=== PATIENT | female | born 1945 | race Caucasian/White ===

== ENCOUNTER → 2016-08-14 | Outpatient (CLI) | payer MEDICARE ==
[2016-08-14 11:07] LABS: Basophils # (A) 0.2 k/uL (0-0.2); Basophils % (A) 2 %; CH 34.2; CHCM 34.6; Eosinophils # (A) 0.2 k/uL (0-0.7); Eosinophils % (A) 2 %; HCT 43.1 % (34.0-46.0); HDW 2.76; HGB 14.5 gm/dL (11.4-16.0); Luc # (Auto) 0.13; Luc % (Auto) 1; Lymphocytes # (A) 3.1 k/uL (1.0-4.8); Lymphocytes % (A) 29 %; MCH 33.5 pg (25.0-35.0); MCHC 33.7 g/dL (31.0-37.0); MCV 99.3 fL (80.0-100.0); Mean Platelet Volume 8.1; Monocytes # (A) 0.6 k/uL (0-1.0); Monocytes % (A) 5 %; Neutrophils # (A) 6.4 k/uL (1.3-7.7); Neutrophils % (A) 60 %; RBC 4.34 m/uL (3.80-5.40); WBC 10.6 k/uL (3.8-10.6)
[2016-08-14 11:33] LABS: ALT 56 U/L (9-52); AST 32 U/L (14-36); Alkaline Phosphatase 61 U/L (38-126); Anion Gap 14 mmol/L; Blood Urea Nitrogen 17 mg/dL (7-17); Calcium 9.8 mg/dL (8.4-10.2); Carbon Dioxide 26 mmol/L (22-30); Chloride 104 mmol/L (98-107); Cholesterol 127 mg/dL (<200); Glucose 126 mg/dL (74-99); HDL Cholesterol 42 mg/dL (40-60); Non-African American GFR(MDRD) 55 (>60 ml/min/1.73 sqM); Potassium 4.5 mmol/L (3.5-5.1); Sodium 144 mmol/L (137-145); Total Bilirubin 1.2 mg/dL (0.2-1.3); Total Protein 7.2 g/dL (6.3-8.2); Triglycerides 99 mg/dL (<150)
[2016-08-14 14:21] LABS: Hemoglobin A1C 5.3 % (4.2-6.1)
== END | disposition home or self-care (01) ==
LOC: LABWHC1 10:40
PROVIDERS: ATTEND Internal Medicine Geriatric Medicine
DX: E55.9 Vitamin D deficiency, unspecified (principal); I25.10 Atherosclerotic heart disease of native coronary artery without angina pectoris; R73.9 Hyperglycemia, unspecified
CPT/HCPCS: 36415; 80053; 80061; 82306; 83036; 84439; 84443; 85025

== ENCOUNTER → 2017-02-11 | Outpatient (CLI) | payer MEDICARE ==
--- NOTE | 2017-02-12 07:22 | XR ---
EXAMINATION TYPE: XR knee complete RT , 3 VIEWS DATE OF EXAM ORDERED: 02/11/2017 HISTORY: M25.561 pain in right knee. COMPARISON: None. FINDINGS: There is medial joint space loss. There is peaking of intercondylar spines. There are gavin deling changes in the medial compartment as well as patellofemoral joint. No definite joint effusion is seen. IMPRESSION: OSTEOARTHRITIS.
== END | disposition home or self-care (01) ==
LOC: RADXRMAIN 17:13
PROVIDERS: ATTEND Internal Medicine Geriatric Medicine
DX: M17.11 Unilateral primary osteoarthritis, right knee (principal)

== ENCOUNTER → 2017-02-24 | Outpatient (CLI) | payer MEDICARE ==
[2017-02-24 11:09] LABS: Basophils % (A) 0 %; CH 34.4; CHCM 34.4; Eosinophils # (A) 0.3 k/uL (0-0.7); Eosinophils % (A) 3 %; HCT 42.5 % (34.0-46.0); HDW 2.68; Luc # (Auto) 0.21; Luc % (Auto) 2; Lymphocytes # (A) 2.8 k/uL (1.0-4.8); Lymphocytes % (A) 28 %; MCH 33.2 pg (25.0-35.0); MCV 100.6 fL (80.0-100.0); Mean Platelet Volume 8.1; Monocytes # (A) 0.5 k/uL (0-1.0); Monocytes % (A) 5 %; Neutrophils # (A) 6.4 k/uL (1.3-7.7); Neutrophils % (A) 62 %; RBC 4.22 m/uL (3.80-5.40); RDW 13.7 % (11.5-15.5); WBC 10.3 k/uL (3.8-10.6); WBC (Perox) 10.46
[2017-02-24 11:30] LABS: ALT 49 U/L (9-52); AST 29 U/L (14-36); Alkaline Phosphatase 60 U/L (38-126); Anion Gap 11 mmol/L; Blood Urea Nitrogen 14 mg/dL (7-17); Calcium 9.6 mg/dL (8.4-10.2); Carbon Dioxide 26 mmol/L (22-30); Chloride 107 mmol/L (98-107); Cholesterol 114 mg/dL (<200); Glucose 111 mg/dL (74-99); HDL Cholesterol 41 mg/dL (40-60); Non-African American GFR(MDRD) 60 (>60 ml/min/1.73 sqM); Potassium 4.5 mmol/L (3.5-5.1); Sodium 144 mmol/L (137-145); Total Bilirubin 0.8 mg/dL (0.2-1.3); Total Protein 6.9 g/dL (6.3-8.2); Triglycerides 82 mg/dL (<150)
[2017-02-24 12:17] LABS: Hemoglobin A1C 5.7 % (4.2-6.1)
== END | disposition home or self-care (01) ==
LOC: LABWHC1 10:41
PROVIDERS: ATTEND Internal Medicine Geriatric Medicine
DX: E78.00 Pure hypercholesterolemia, unspecified (principal); I10 Essential (primary) hypertension; R73.9 Hyperglycemia, unspecified
CPT/HCPCS: 36415; 80053; 80061; 83036; 84439; 84443; 85025

== ENCOUNTER → 2017-11-21 | Outpatient (CLI) | payer MEDICARE ==
[2017-11-21 11:06] LABS: Albumin 4.2 g/dL (3.5-5.0); Calcium 9.5 mg/dL (8.4-10.2); Potassium 4.2 mmol/L (3.5-5.1); Total Bilirubin 1.1 mg/dL (0.2-1.3); Total Protein 6.7 g/dL (6.3-8.2)
[2017-11-21 16:28] LABS: Vitamin D 25 Hydroxy 27.9 ng/mL (30.0-100.0)
[2017-11-21 16:41] LABS: Folate, Serum 22.4 ng/mL
== END | disposition home or self-care (01) ==
LOC: LABWHC1 10:13
PROVIDERS: ATTEND Internal Medicine Interventional Cardiology
DX: E55.9 Vitamin D deficiency, unspecified (principal); D52.0 Dietary folate deficiency anemia; E78.2 Mixed hyperlipidemia
CPT/HCPCS: 36415; 80053; 80061; 82306; 82607; 82746

== ENCOUNTER → 2018-03-04 | Outpatient (CLI) | payer MEDICARE ==
[2018-03-04 10:53] LABS: Basophils % (A) 0 %; Eosinophils # (A) 0.2 k/uL (0-0.7); Eosinophils % (A) 2 %; HCT 39.8 % (34.0-46.0); HGB 13.8 gm/dL (11.4-16.0); Lymphocytes # (A) 1.9 k/uL (1.0-4.8); Lymphocytes % (A) 26 %; MCH 33.9 pg (25.0-35.0); MCHC 34.6 g/dL (31.0-37.0); Mean Platelet Volume 7.5; Monocytes # (A) 0.4 k/uL (0-1.0); Monocytes % (A) 5 %; Neutrophils # (A) 4.7 k/uL (1.3-7.7); Neutrophils % (A) 64 %; Platelet Count 247 k/uL (150-450); RBC 4.06 m/uL (3.80-5.40); RDW 13.7 % (11.5-15.5); WBC 7.4 k/uL (3.8-10.6)
[2018-03-04 11:05] LABS: Albumin 3.7 g/dL (3.5-5.0); Calcium 9.2 mg/dL (8.4-10.2); Total Bilirubin 0.8 mg/dL (0.2-1.3); Total Protein 6.3 g/dL (6.3-8.2)
[2018-03-04 11:21] LABS: T4, Free (Free Thyroxine) 1.24 ng/dL (0.78-2.19)
[2018-03-04 16:55] LABS: Iron Saturation 35.53 (12.00-45.00)
[2018-03-04 17:02] LABS: Vitamin D 25 Hydroxy 36.5 ng/mL (30.0-100.0)
[2018-03-04 20:03] LABS: Hemoglobin A1C 5.7 % (4.0-6.0)
== END | disposition home or self-care (01) ==
LOC: LABWHC1 09:51
PROVIDERS: ATTEND Internal Medicine Geriatric Medicine
DX: D52.0 Dietary folate deficiency anemia (principal); I25.10 Atherosclerotic heart disease of native coronary artery without angina pectoris; E78.00 Pure hypercholesterolemia, unspecified; R73.9 Hyperglycemia, unspecified
CPT/HCPCS: 36415; 80053; 80061; 82306; 82607; 82746; 83036; 83540; 83550; 84439; 84443; 85025

== ENCOUNTER → 2018-03-25 | Outpatient (CLI) | payer MEDICARE ==
--- NOTE | 2018-03-25 19:01 | BD ---
EXAMINATION TYPE: Axial Bone Density DATE OF EXAM: 03/25/2018 COMPARISON: 10/06/2007 CLINICAL HISTORY: 73-year-old female osteoporosis Height: 62.5 IN Weight: 173 LBS RISK FACTORS HISTORY OF: Family History of Osteoporosis: YES MOTHER Active: YES Postmenopausal woman: AGE 52 Take estrogen and/or progesterone medications: NOT NOW How long: CONTROL AGE 27 - 28 Lost more than 2 inches in height since high school: Frequent falls: Poor Health: Hyperparathyroidism: Adrenal Insufficiency: MEDICATIONS: Additional Medications: MULTI VIT, VIT D3, ATENOLOL, LIPITOR, LOSARTAN, COQ10, FISH OIL, BABY ASPIRIN Additional History: BILATERAL BREAST CANCER AGE 40, AND AGE 62 EXAM MEASUREMENTS: Bone mineral densitometry was performed using the [employer] System. Bone mineral density as measured about the Lumbar spine is: ----- L1-L4(G/cm2): 1.374 T Score Values are as follows: ----- L2: 0.7 ----- L3: 1.8 ----- L4: 2.4 ----- L1-L4: 1.6 Bone mineral density has: Increased 10.4% since study of: 10/06/2007 Bone mineral density about the R hip (g/cm2): 0.924 Bone mineral density about the L hip (g/cm2): 0.989 T Score values are as follows: -----R Neck: -0.8 -----L Neck: -0.4 -----R Total: -0.5 -----L Total: 0.2 Bone mineral density has: Decreased -3.4% since study of: 10/06/2007 IMPRESSION: Normal (Values between +1 and -1 indicate normal bone mass). Consider repeating this study in 5 year s or sooner if there is some new clinical indication. NOTE: T-SCORE=SD OF THE YOUNG ADULT MEAN.
== END | disposition home or self-care (01) ==
LOC: RADBDWWP 12:33
PROVIDERS: ATTEND Internal Medicine Geriatric Medicine
DX: M81.0 Age-related osteoporosis without current pathological fracture (principal)
CPT/HCPCS: 77080

== ENCOUNTER 2018-09-06 00:57 | Emergency (ER) | payer MEDICARE ==
[2018-09-06 01:02] VITALS: TEMP 98
--- NOTE | 2018-09-06 01:24 | ED ---
General Adult HPI - General Chief complaint: Recheck/Abnormal Lab/Rx Stated complaint: hypertension Time Seen by Provider: 09/06/18 01:06 Source: patient Mode of arrival: ambulatory Limitations: no limitations - History of Present Illness Initial comments: Brianna is a pleasant 73-year-old female with history of hypertension who presents to the emergency department today for evaluation of headache and hypertension. Patient reports that she's had a vague pressure-like headache throughout the day today, she was concerned she may be getting a sinus infection. She states that this evening she checked her blood pressure and noted that it was greater than 200 systolic. She contacted her primary care office but did not receive a call back at which time she decided to come the ER for evaluation. Patient reports that she is on oral antihypertensives and that she has been compliant with all of her medications. She is not taking any over- the-counter medications or cold medications. She reports that upon arrival to the emergency Department her headache has resolved however she still concerned about her elevated blood pressure. Patient denies any chest pain, shortness of breath, palpitations or near syncope. - Related Data Home Medications Medication Instructions Recorded Confirmed Aspirin 81 - 162 mg PO DAILY 01/07/15 02/11/15 Atenolol 25 mg PO DAILY 01/07/15 02/11/15 Atorvastatin [Lipitor] 40 mg PO DAILY 01/07/15 02/11/15 Cholecalciferol [Vitamin D3] 2,000 unit PO DAILY 01/07/15 02/11/15 Nitroglycerin Sl Tabs [Nitrostat] 0.4 mg SUBLINGUAL DIRECTED PRN 01/07/15 [place]-3 Fatty Acids [[place]-3] 1,000 mg PO DAILY 01/07/15 02/11/15 Ubidecarenone [Co Q-10] 200 mg PO DAILY 01/07/15 02/11/15 Multivitamins, Thera [Multivitamin 1 each PO DAILY 02/01/15 02/11/15 (formulary)] Previous Rx's Medication Instructions Recorded Losartan [Cozaar] 50 mg PO DAILY #90 tab 02/06/15 Allergies Allergy/AdvReac Type Severity Reaction Status Date / Time Antihistamines - Alkylamine Allergy Rapid Verified 09/06/18 01:02 Heart Rate Antihistamines - Ethanolamine Allergy Rapid Verified 09/06/18 01:02 Heart Rate Antihistamines - Allergy Rapid Verified 09/06/18 01:02 Ethylenediamine Heart Rate Antihistamines - Piperazine Allergy Rapid Verified 09/06/18 01:02 Heart Rate Antihistamines - Piperidine Allergy Rapid Verified 09/06/18 01:02 Heart Rate cortisone Allergy Rapid Verified 09/06/18 01:02 Heart Rate epinephrine Allergy Rapid Verified 09/06/18 01:02 Heart Rate morphine Allergy Nausea & Verified 09/06/18 01:02 Vomiting Penicillins Allergy Rash/Hives Verified 09/06/18 01:02 Review of Systems ROS Statement: Those systems with pertinent positive or pertinent negative responses have been documented in the HPI. ROS Other: All systems not noted in ROS Statement are negative. Past Medical History Past Medical History: Coronary Artery Disease (CAD), Cancer, Chest Pain / Angina , Deep Vein Thrombosis (DVT), Hyperlipidemia, Hypertension, Myocardial Infarction ([place]) Additional Past Medical History / Comment(s): Breast Cancer , DVT RT LEG 1991 POST FX,FREQ DIARRHEA,IBS,KIDNEY STONES,CHRONIC RASH TO LT FOOT,UMBILICAL HERNIA Last Myocardial Infarction Date:: History of Any Multi-Drug Resistant Organisms: None Reported Past Surgical History: Adenoidectomy, Breast Surgery, Heart Catheterization With Stent, Hysterectomy, Orthopedic Surgery, Tonsillectomy Additional Past Surgical History / Comment(s): Bilateral Mastactomy,heart stents x1. right total knee replacement. Past Anesthesia/Blood Transfusion Reactions: Postoperative Nausea & Vomiting ( PONV) Date of Last Stent Placement:: 2009 Past Psychological History: No Psychological Hx Reported Smoking Status: Former smoker Past Alcohol Use History: Occasional Past Drug Use History: None Reported - Past Family History Sister(s) Family Medical History: Cancer Additional Family Medical History / Comment(s): BREAST Mother Family Medical History: CVA/TIA Father Family Medical History: Cancer Additional Family Medical History / Comment(s): LUNG CA General Exam - General Exam Comments Initial Comments: GENERAL: Patient is well-developed and well-nourished. Patient is nontoxic and well-hydrated and is in no distress. HENT: Normocephalic, Atraumatic. Neck is soft and supple. No significant lymphadenopathy is noted. Oropharynx is clear. Moist mucous membranes. Neck has full range of motion without eliciting any pain. EYES: The sclera were anicteric and conjunctiva were pink and moist. Extraocular movements were intact and pupils were equal round and reactive to light. Eyelids were unremarkable. PULMONARY: Unlabored respirations. Good breath sounds bilaterally. No audible rales rhonchi or wheezing was noted. CARDIOVASCULAR: There is a regular rate and rhythm without any murmurs gallops or rubs. warm and well perfused extremities ABDOMEN: Soft and nontender with normal bowel sounds. No pulsatile mass SKIN: Skin is clear with no lesions or rashes and otherwise unremarkable. NEUROLOGIC: Patient is alert and oriented x3. Cranial nerves II through XII are grossly intact. Normal speech, volume and content. Symmetrical smile. MUSCULOSKELETAL: Normal extremities with adequate strength and full range of motion. No lower extremity swelling or edema. No calf tenderness. LYMPHATICS: No significant lymphadenopathy is noted PSYCHIATRIC: Normal psychiatric evaluation. Limitations: no limitations Limitations: no limitations Course Vital Signs 09/06/18 09/06/18 00:58 02:35 Temperature 98 F Pulse Rate 82 67 Respiratory 16 20 Rate Blood Pressure 207/77 127/57 O2 Sat by Pulse 98 97 Oximetry EKG Findings - EKG Comments: EKG Findings:: EKG was obtained at 1:40 AM rate is 100 and there is sinus rhythm with sinus arrhythmia and frequent PVCs. There are no acute ST elevations or depressions is no acute ischemia or infarction. Medical Decision Making - Medical Decision Making the patient was seen and evaluated history was obtained from the patient and at bedside Patient with mild headache throughout the day presenting with concern for elevated blood pressure On evaluation the patient's blood pressure is significantly elevated she's not had any chest pain or shortness of breath Catapres was ordered for blood pressure management and CT and labs were ordered Head CT with no acute findings Labs are unremarkable next an EKG is nonischemic Patient was reevaluated her blood pressure has normalized at this point she reports she is feeling much better she is comfortable with the plan for discharge home. She will contact her primary care physician for outpatient follow-up. Return parameters were discussed with questions pertaining care were answered to the best my ability patient was discharged home in stable condition. - Lab Data Result diagrams: 09/06/18 01:30 09/06/18 01:30 Lab Results 09/06/18 09/06/18 09/06/18 Range/Units 01:30 01:30 01:30 WBC 13.3 H (3.8-10.6) k/uL RBC 4.54 (3.80-5.40) m/uL Hgb 15.2 (11.4-16.0) gm/dL Hct 44.8 (34.0-46.0) % MCV 98.7 (80.0-100.0) fL MCH 33.5 (25.0-35.0) pg MCHC 34.0 (31.0-37.0) g/dL RDW 13.2 (11.5-15.5) % Plt Count 304 (150-450) k/uL Neutrophils % 58 % Lymphocytes % 32 % Monocytes % 6 % Eosinophils % 2 % Basophils % 1 % Neutrophils # 7.7 (1.3-7.7) k/uL Lymphocytes # 4.2 (1.0-4.8) k/uL Monocytes # 0.7 (0-1.0) k/uL Eosinophils # 0.2 (0-0.7) k/uL Basophils # 0.1 (0-0.2) k/uL PT (9.0-12.0) sec INR (<1.2) APTT (22.0-30.0) sec Sodium 140 (137-145) mmol/L Potassium 3.7 (3.5-5.1) mmol/L Chloride 105 (98-107) mmol/L Carbon Dioxide 24 (22-30) mmol/L Anion Gap 11 mmol/L BUN 18 H (7-17) mg/dL Creatinine 0.96 (0.52-1.04) mg/dL Est GFR (CKD-EPI)AfAm 69 (>60 ml/min/1.73 sqM) Est GFR (CKD-EPI)NonAf 60 (>60 ml/min/1.73 sqM) Glucose 133 H (74-99) mg/dL Calcium 10.0 (8.4-10.2) mg/dL Magnesium 1.9 (1.6-2.3) mg/dL Total Bilirubin 0.8 (0.2-1.3) mg/dL AST 32 (14-36) U/L ALT 55 H (9-52) U/L Alkaline Phosphatase 79 (38-126) U/L Total Creatine Kinase 54 (30-135) U/L CK-MB (CK-2) 0.7 (0.0-2.4) ng/mL CK-MB (CK-2) Rel Index 1.3 Troponin I <0.012 (0.000-0.034) ng/mL Total Protein 7.5 (6.3-8.2) g/dL Albumin 4.6 (3.5-5.0) g/dL 09/06/18 Range/Units 01:30 WBC (3.8-10.6) k/uL RBC (3.80-5.40) m/uL Hgb (11.4-16.0) gm/dL Hct (34.0-46.0) % MCV (80.0-100.0) fL MCH (25.0-35.0) pg MCHC (31.0-37.0) g/dL RDW (11.5-15.5) % Plt Count (150-450) k/uL Neutrophils % % Lymphocytes % % Monocytes % % Eosinophils % % Basophils % % Neutrophils # (1.3-7.7) k/uL Lymphocytes # (1.0-4.8) k/uL Monocytes # (0-1.0) k/uL Eosinophils # (0-0.7) k/uL Basophils # (0-0.2) k/uL PT 10.2 (9.0-12.0) sec INR 0.9 (<1.2) APTT 33.1 H (22.0-30.0) sec Sodium (137-145) mmol/L Potassium (3.5-5.1) mmol/L Chloride (98-107) mmol/L Carbon Dioxide (22-30) mmol/L Anion Gap mmol/L BUN (7-17) mg/dL Creatinine (0.52-1.04) mg/dL Est GFR (CKD-EPI)AfAm (>60 ml/min/1.73 sqM) Est GFR (CKD-EPI)NonAf (>60 ml/min/1.73 sqM) Glucose (74-99) mg/dL Calcium (8.4-10.2) mg/dL Magnesium (1.6-2.3) mg/dL Total Bilirubin (0.2-1.3) mg/dL AST (14-36) U/L ALT (9-52) U/L Alkaline Phosphatase (38-126) U/L Total Creatine Kinase (30-135) U/L CK-MB (CK-2) (0.0-2.4) ng/mL CK-MB (CK-2) Rel Index Troponin I (0.000-0.034) ng/mL Total Protein (6.3-8.2) g/dL Albumin (3.5-5.0) g/dL Disposition Clinical Impression: HTN (hypertension), Headache Disposition: HOME SELF-CARE Condition: Good Instructions (If sedation given, give patient instructions): Hypertension (ED) Is patient prescribed a controlled substance at d/c from ED?: No Referrals: Jacky Malave MD [Primary Care Provider] - 1-2 days
[2018-09-06] MEDS ORDERED: cloNIDine HCL 0.1 MG TAB PO STA (01:25)
[2018-09-06 01:50] LABS: Basophils # (A) 0.1 k/uL (0-0.2); Basophils % (A) 1 %; Eosinophils # (A) 0.2 k/uL (0-0.7); Eosinophils % (A) 2 %; HCT 44.8 % (34.0-46.0); HGB 15.2 gm/dL (11.4-16.0); Lymphocytes # (A) 4.2 k/uL (1.0-4.8); Lymphocytes % (A) 32 %; MCH 33.5 pg (25.0-35.0); MCV 98.7 fL (80.0-100.0); Mean Platelet Volume 7.1; Monocytes # (A) 0.7 k/uL (0-1.0); Monocytes % (A) 6 %; Neutrophils # (A) 7.7 k/uL (1.3-7.7); Neutrophils % (A) 58 %; Platelet Count 304 k/uL (150-450); RBC 4.54 m/uL (3.80-5.40); RDW 13.2 % (11.5-15.5); WBC 13.3 k/uL (3.8-10.6)
[2018-09-06 02:00] LABS: Albumin 4.6 g/dL (3.5-5.0); Magnesium 1.9 mg/dL (1.6-2.3); Potassium 3.7 mmol/L (3.5-5.1); Total Bilirubin 0.8 mg/dL (0.2-1.3); Total Protein 7.5 g/dL (6.3-8.2)
--- NOTE | 2018-09-06 02:00 | CT ---
EXAM: CT Head Without Intravenous Contrast CLINICAL HISTORY: ITS.REASON CT Reason: VALDEZ, HTN TECHNIQUE: Axial computed tomography images of the head/brain without intravenous contrast. CTDI is 49 mGy and DLP is 992 mGy-cm. This CT exam was performed using one or more of the following dose reduction techniques: automated exposure control, adjustment of the mA and/or kV according to patient size, and/or use of iterative reconstruction technique. COMPARISON: No relevant prior studies available. FINDINGS: Brain: No hemorrhage. No edema. Ventricles: Unremarkable. No ventriculomegaly. Bones/joints: No acute fracture. Soft tissues: Unremarkable. Sinuses: No fluid levels. Mastoid air cells: Unremarkable as visualized. No mastoid effusion. IMPRESSION: No acute intracranial findings
[2018-09-06 02:01] LABS: INR 0.9 (<1.2); Partial Thromboplastin Time 33.1 sec (22.0-30.0); Prothrombin Time 10.2 sec (9.0-12.0)
--- NOTE | 2018-09-06 02:02 | XR ---
EXAM: XR Chest, 2 Views CLINICAL HISTORY: ITS.REASON XR Reason: Chest Pain TECHNIQUE: Frontal and lateral views of the chest. COMPARISON: No relevant prior studies available. FINDINGS: Lungs: Unremarkable. No consolidation. Pleural space: Unremarkable. No pneumothorax. Heart: Unremarkable. No cardiomegaly. Mediastinum: Unremarkable. Bones/joints: No acute fracture. IMPRESSION: No acute findings.
[2018-09-06 02:07] LABS: Creatine Kinase 54 U/L (30-135)
[2018-09-06 02:20] LABS: Creatine Kinase MB 0.7 ng/mL (0.0-2.4); Troponin I <0.012 ng/mL (0.000-0.034)
[2018-09-06 02:56] VITALS: BP 129/79; PULSE 76; RESP 18
== END 2018-09-06 02:56 | disposition home or self-care (01) ==
LOC: EC 00:57
DX: I10 Essential (primary) hypertension (principal); I49.3 Ventricular premature depolarization; I25.119 Atherosclerotic heart disease of native coronary artery with unspecified angina pectoris; I25.2 Old myocardial infarction; E78.5 Hyperlipidemia, unspecified; Z79.82 Long term (current) use of aspirin; Z79.899 Other long term (current) drug therapy; Z88.8 Allergy status to other drugs, medicaments and biological substances; Z88.0 Allergy status to penicillin; Z88.5 Allergy status to narcotic agent; Z88.6 Allergy status to analgesic agent; Z87.891 Personal history of nicotine dependence; Z95.5 Presence of coronary angioplasty implant and graft; Z85.3 Personal history of malignant neoplasm of breast; Z86.718 Personal history of other venous thrombosis and embolism; Z90.13 Acquired absence of bilateral breasts and nipples; Z96.651 Presence of right artificial knee joint
CPT/HCPCS: 36415; 70450; 71046; 80053; 82550; 82553; 83735; 84484; 85025; 85610; 85730; 93005; 99284

== ENCOUNTER 2018-10-03 15:20 | Emergency (ER) | payer MEDICARE ==
[2018-10-03 15:29] VITALS: RESP 16; TEMP 98.6
--- NOTE | 2018-10-03 15:49 | ED ---
Extremity Problem HPI - General Chief complaint: Extremity Problem,Nontraumatic Stated complaint: Can't walk on lt leg Time Seen by Provider: 10/03/18 15:30 Source: patient Mode of arrival: wheelchair Limitations: no limitations - History of Present Illness Initial comments: Patient is a 73-year-old female presenting for left leg pain. The patient stat es that she drove to [facility] on the right was about 5-6 hours and after that, she was having left knee pain which was worse when she stood on it. The pain was sharp and radiating down the left leg but she denies any weakness. She states that she also has chronic right knee pain but his had a complete knee replacement in that leg. She decided come in because she was concerned about DVTs as she has a history of DVTs in the past. She also denies any numbness or tingling in that leg. - Related Data Home Medications Medication Instructions Recorded Confirmed Aspirin 81 - 162 mg PO DAILY 01/07/15 02/11/15 Atenolol 25 mg PO DAILY 01/07/15 02/11/15 Atorvastatin [Lipitor] 40 mg PO DAILY 01/07/15 02/11/15 Cholecalciferol [Vitamin D3] 2,000 unit PO DAILY 01/07/15 02/11/15 Nitroglycerin Sl Tabs [Nitrostat] 0.4 mg SUBLINGUAL DIRECTED PRN 01/07/15 02/11/15 [place]-3 Fatty Acids [[place]-3] 1,000 mg PO DAILY 01/07/15 02/11/15 Ubidecarenone [Co Q-10] 200 mg PO DAILY 01/07/15 02/11/15 Multivitamins, Thera [Multivitamin 1 each PO DAILY 02/01/15 02/11/15 (formulary)] Previous Rx's Medication Instructions Recorded Losartan [Cozaar] 50 mg PO DAILY #90 tab 02/06/15 HYDROcodone/APAP 5-325MG [[place] 1 tab PO Q6HR PRN #12 tab 10/03/18 5-325] Allergies Allergy/AdvReac Type Severity Reaction Status Date / Time Antihistamines - Alkylamine Allergy Rapid Verified 10/03/18 15:29 Heart Rate Antihistamines - Ethanolamine Allergy Rapid Verified 10/03/18 15:29 Heart Rate Antihistamines - Allergy Rapid Verified 10/03/18 15:29 Ethylenediamine Heart Rate Antihistamines - Piperazine Allergy Rapid Verified 10/03/18 15:29 Heart Rate Antihistamines - Piperidine Allergy Rapid Verified 10/03/18 15:29 Heart Rate cortisone Allergy Rapid Verified 10/03/18 15:29 Heart Rate epinephrine Allergy Rapid Verified 10/03/18 15:29 Heart Rate morphine Allergy Nausea & Verified 10/03/18 15:29 Vomiting Penicillins Allergy Rash/Hives Verified 10/03/18 15:29 Review of Systems ROS Statement: Those systems with pertinent positive or pertinent negative responses have been documented in the HPI. Constitutional: Negative for chills, fatigue and fever. HENT: Negative for congestion. Respiratory: Negative for chest tightness, shortness of breath and wheezing. Negative for cough Cardiovascular: Negative for chest pain and palpitations. Gastrointestinal: Negative for abdominal pain. Negative for abdominal distention, diarrhea, nausea and vomiting. Genitourinary: Negative for dysuria. Musculoskeletal: Negative for back pain, neck pain and neck stiffness. Positive for left knee pain Skin: Negative for color change. Neurological: Negative for dizziness, speech difficulty, weakness and light- headedness. Psychiatric/Behavioral: Negative for agitation and confusion. Negative for anxiety ROS Other: All systems not noted in ROS Statement are negative. Past Medical History Past Medical History: Coronary Artery Disease (CAD), Cancer, Chest Pain / Angina, Deep Vein Thrombosis (DVT), Hyperlipidemia, Hypertension, Myocardial Infarction ([place]) Additional Past Medical History / Comment(s): Breast Cancer , DVT RT LEG 1990 POST FX,FREQ DIARRHEA,IBS,KIDNEY STONES,CHRONIC RASH TO LT FOOT,UMBILICAL HERNIA Last Myocardial Infarction Date:: History of Any Multi-Drug Resistant Organisms: None Reported Past Surgical History: Adenoidectomy, Breast Surgery, Heart Catheterization With Stent, Hysterectomy, Orthopedic Surgery, Tonsillectomy Additional Past Surgical History / Comment(s): Bilateral Mastactomy,heart stents x1. right total knee replacement. Past Anesthesia/Blood Transfusion Reactions: Postoperative Nausea & Vomiting (PONV) Date of Last Stent Placement:: 2009 Past Psychological History: No Psychological Hx Reported Smoking Status: Former smoker Past Alcohol Use History: Occasional Past Drug Use History: None Reported - Past Family History Sister(s) Family Medical History: Cancer Additional Family Medical History / Comment(s): BREAST Mother Family Medical History: CVA/TIA Father Family Medical History: Cancer Additional Family Medical History / Comment(s): LUNG CA General Exam - General Exam Comments Initial Comments: Constitutional: Pt appears well-developed and well-nourished. No distress. Head: Normocephalic and atraumatic. Eyes: EOM are normal. Neck: Normal range of motion. Neck supple. Cardiovascular: Normal rate, regular rhythm, S1 normal, S2 normal and normal heart sounds. Exam reveals no gallop and no friction rub. No murmur heard. 2+ DP/PT pulses bilaterally Pulmonary/Chest: Effort normal and breath sounds normal. No tachypnea and no bradypnea. No respiratory distress. No wheezes or rales noted. Abdominal: Soft. Bowel sounds are normal. Pt exhibits no shifting dullness, no distension, no pulsatile liver, no fluid wave, no abdominal bruit and no ascites. There is no rigidity, no rebound, no guarding, no tenderness at McBurney's point and negative Hemphill's sign. There is no tenderness. Musculoskeletal: Normal range of motion. No effusions of the knees bilaterally. No tenderness in the gluteal fossa of either knee. Neurological: Pt is alert and oriented to person, place, and time. No cranial nerve deficit. Skin: Skin is warm and dry. No rash noted. Pt is not diaphoretic. No erythema. No pallor. Psychiatric: Pt has a normal mood and affect. Pt behavior is normal. Thought content normal. Limitations: no limitations Course Vital Signs 10/03/18 10/03/18 15:25 18:08 Temperature 98.6 F 98.6 F Pulse Rate 78 72 Respiratory 16 16 Rate Blood Pressure 169/72 155/70 O2 Sat by Pulse 98 99 Oximetry Medical Decision Making - Medical Decision Making Bilateral lower extremity ultrasounds were negative for DVT and x-ray of the left knee was unremarkable. Patient was offered additional medications for pain but currently stated that she did not want it and her primary reason for coming in was wanted to make sure that these were not DVTs.It was explained that while there does not appear to be an emergent process, the etiology of the symptoms are still unclear but possibly related to arthritis and may need further workup as an outpatient if symptoms continue. Explained all labs and diagnostic test results and that we will discharge the patient home and patient is to follow up with PCP in 1-2 days and return to the ED if symptoms worsen. Pt is agreeable to plan. Disposition Clinical Impression: Left knee pain Disposition: HOME SELF-CARE Condition: Good Instructions (If sedation given, give patient instructions): Knee Pain (ED) Prescriptions: HYDROcodone/APAP 5-325MG [[place] 5-325] 1 tab PO Q6HR PRN #12 tab PRN Reason: Pain Is patient prescribed a controlled substance at d/c from ED?: No Referrals: Jacky Malave MD [Primary Care Provider] - 1-2 days Time of Disposition: 17:57
--- NOTE | 2018-10-03 16:49 | XR ---
EXAMINATION TYPE: XR knee complete LT DATE OF EXAM: 10/03/2018 COMPARISON: NONE HISTORY: Knee pain TECHNIQUE: 3 views FINDINGS: There is slight narrowing of the medial joint space. There is spurring of medial femoral an d tibial condyles. There is spurring on the patella. There is no joint effusion. IMPRESSION: Mild osteoarthritis. No fracture.
--- NOTE | 2018-10-03 17:05 | US ---
EXAMINATION TYPE: US venous doppler duplex LE BI DATE OF EXAM: 10/03/2018 4:26 PM COMPARISON: NONE CLINICAL HISTORY: Pain - hx of DVTs. SIDE PERFORMED: Bilateral TECHNIQUE: The lower extremity deep venous system is examined utilizing real time linear array sonog rush with graded compression, doppler sonography and color-flow sonography. VESSELS IMAGED: External Iliac Vein (EIV) Common Femoral Vein Deep Femoral Vein Greater Saphenous Vein * Femoral Vein Popliteal Vein Small Saphenous Vein * Proximal Calf Veins (* superficial vessels) Right Leg: Negative for DVT Left Leg: Negative for DVT IMPRESSION: No evidence of deep venous thrombosis in both legs.
[2018-10-03 18:09] VITALS: BP 155/70; PULSE 72
== END 2018-10-03 18:10 | disposition home or self-care (01) ==
LOC: EC 15:20
DX: M25.562 Pain in left knee (principal); G89.29 Other chronic pain; M25.561 Pain in right knee; M79.605 Pain in left leg; E78.5 Hyperlipidemia, unspecified; I10 Essential (primary) hypertension; I25.119 Atherosclerotic heart disease of native coronary artery with unspecified angina pectoris; I25.2 Old myocardial infarction; Z87.891 Personal history of nicotine dependence; Z88.0 Allergy status to penicillin; Z88.5 Allergy status to narcotic agent; Z88.8 Allergy status to other drugs, medicaments and biological substances; Z79.82 Long term (current) use of aspirin; Z79.899 Other long term (current) drug therapy; Z86.718 Personal history of other venous thrombosis and embolism; Z85.3 Personal history of malignant neoplasm of breast; Z95.5 Presence of coronary angioplasty implant and graft; Z90.13 Acquired absence of bilateral breasts and nipples; Z96.651 Presence of right artificial knee joint
CPT/HCPCS: 93970; 99284

== ENCOUNTER → 2018-12-18 | Outpatient (CLI) | payer MEDICARE ==
[2018-12-18 11:18] LABS: Basophils % (A) 0 %; Eosinophils # (A) 0.3 k/uL (0-0.7); Eosinophils % (A) 3 %; HGB 13.7 gm/dL (11.4-16.0); Lymphocytes # (A) 2.2 k/uL (1.0-4.8); Lymphocytes % (A) 28 %; MCH 32.5 pg (25.0-35.0); MCHC 32.6 g/dL (31.0-37.0); MCV 99.9 fL (80.0-100.0); Mean Platelet Volume 7.6; Monocytes # (A) 0.5 k/uL (0-1.0); Monocytes % (A) 6 %; Neutrophils # (A) 4.9 k/uL (1.3-7.7); Neutrophils % (A) 61 %; Platelet Count 292 k/uL (150-450); RBC 4.21 m/uL (3.80-5.40); RDW 13.5 % (11.5-15.5); WBC 8.1 k/uL (3.8-10.6)
[2018-12-18 14:21] LABS: Erythrocyte Sedimentation Rate 12 mm/hr (0-20)
[2018-12-18 17:12] LABS: Albumin 4.4 g/dL (3.80-4.90); Albumin/Globulin Ratio 2.2 (1.60-3.17); Anion Gap 9.6 mmol/L (4.00-12.00); Calcium 9.5 mg/dL (8.7-10.3); Carbon Dioxide 26.4 mmol/L (21.6-31.8); LDL Cholesterol,Calculated 62.8 mg/dL (0.0-131.0); Total Protein 6.4 g/dL (6.2-8.2); VLDL Calculation 18.2 mg/dL (5.00-40.00)
[2018-12-18 19:12] LABS: Hemoglobin A1C 5.7 % (4.0-6.0)
== END | disposition home or self-care (01) ==
LOC: LABWHC1 09:54
PROVIDERS: ATTEND Internal Medicine Geriatric Medicine
DX: E78.2 Mixed hyperlipidemia (principal); M35.3 Polymyalgia rheumatica; R73.9 Hyperglycemia, unspecified; I25.10 Atherosclerotic heart disease of native coronary artery without angina pectoris
CPT/HCPCS: 36415; 80053; 80061; 83036; 84439; 84443; 85025; 85652

== ENCOUNTER → 2019-06-24 | Outpatient (CLI) | payer MEDICARE ==
[2019-06-24 16:35] LABS: Albumin 4.3 g/dL (3.80-4.90); Albumin/Globulin Ratio 2.26 (1.60-3.17); Anion Gap 8.3 mmol/L (4.00-12.00); BUN/Creat Ratio 12.22 Ratio (12.00-20.00); Calcium 9.3 mg/dL (8.7-10.3); Carbon Dioxide 25.7 mmol/L (21.6-31.8); Chol/HDL Ratio 2.65; Globulin 1.9 g/dL (1.6-3.3); Non-African American GFR(CKD) 63.9 (60.0-200.0); Potassium 4.1 mmol/L (3.5-5.5); Total Protein 6.2 g/dL (6.2-8.2)
== END | disposition home or self-care (01) ==
LOC: LABWHC1 08:23
PROVIDERS: ATTEND Internal Medicine Interventional Cardiology
DX: E78.2 Mixed hyperlipidemia (principal)
CPT/HCPCS: 36415; 80053; 80061

== ENCOUNTER → 2019-11-25 | Outpatient (CLI) | payer MEDICARE ==
[2019-11-25 09:09] LABS: Basophils % (A) 0 %; Eosinophils # (A) 0.3 k/uL (0-0.7); Eosinophils % (A) 3 %; HGB 14.5 gm/dL (11.4-16.0); Lymphocytes # (A) 3.2 k/uL (1.0-4.8); Lymphocytes % (A) 34 %; MCH 33.7 pg (25.0-35.0); MCHC 33.8 g/dL (31.0-37.0); MCV 99.7 fL (80.0-100.0); Mean Platelet Volume 7.8; Monocytes # (A) 0.5 k/uL (0-1.0); Monocytes % (A) 5 %; Neutrophils # (A) 5.3 k/uL (1.3-7.7); Neutrophils % (A) 56 %; Platelet Count 288 k/uL (150-450); RBC 4.31 m/uL (3.80-5.40); RDW 12.8 % (11.5-15.5); WBC 9.5 k/uL (3.8-10.6)
[2019-11-25 17:13] LABS: Albumin 4.3 g/dL (3.80-4.90); Albumin/Globulin Ratio 2.15 (1.60-3.17); Anion Gap 13.6 mmol/L (4.00-12.00); BUN/Creat Ratio 15.56 Ratio (12.00-20.00); Calcium 9.6 mg/dL (8.7-10.3); Carbon Dioxide 25.4 mmol/L (21.6-31.8); Chol/HDL Ratio 3.11; LDL Cholesterol,Calculated 60.4 mg/dL (0.0-131.0); Non-African American GFR(CKD) 63.9 (60.0-200.0); Potassium 4.3 mmol/L (3.5-5.5); Total Bilirubin 1.1 mg/dL (0.3-1.2); Total Protein 6.3 g/dL (6.2-8.2); VLDL Calculation 19.6 mg/dL (5.00-40.00)
== END | disposition home or self-care (01) ==
LOC: LABWHC1 08:43
PROVIDERS: ATTEND Internal Medicine Geriatric Medicine
DX: I10 Essential (primary) hypertension (principal); E78.2 Mixed hyperlipidemia
CPT/HCPCS: 36415; 80053; 80061; 84443; 85025

== ENCOUNTER → 2020-01-24 | Outpatient (CLI) | payer MEDICARE ==
[2020-01-24 15:59] LABS: Albumin 4.2 g/dL (3.80-4.90); Anion Gap 5.6 mmol/L (4.00-12.00); BUN/Creat Ratio 14.44 Ratio (12.00-20.00); Calcium 9.4 mg/dL (8.7-10.3); Carbon Dioxide 28.4 mmol/L (21.6-31.8); Chol/HDL Ratio 2.9; Globulin 2.1 g/dL (1.6-3.3); LDL Cholesterol,Calculated 63.4 mg/dL (0.0-131.0); Non-African American GFR(CKD) 63.9 (60.0-200.0); Potassium 4.4 mmol/L (3.5-5.5); Total Bilirubin 1.1 mg/dL (0.2-1.2); Total Protein 6.3 g/dL (6.2-8.2); VLDL Calculation 14.6 mg/dL (5.00-40.00)
== END | disposition home or self-care (01) ==
LOC: LABWHC1 10:39
PROVIDERS: ATTEND Internal Medicine Interventional Cardiology
DX: E78.2 Mixed hyperlipidemia (principal)
CPT/HCPCS: 36415; 80053; 80061

== ENCOUNTER → 2020-07-31 | Outpatient (CLI) | payer MEDICARE ==
[2020-07-31 15:41] LABS: Chol/HDL Ratio 3.23
== END | disposition home or self-care (01) ==
LOC: LABWHC1 09:26
PROVIDERS: ATTEND Nurse Practitioner Adult Health
DX: E78.2 Mixed hyperlipidemia (principal)
CPT/HCPCS: 36415; 80061; 84450; 84460

== ENCOUNTER → 2020-10-05 | Outpatient (CLI) | payer MEDICARE ==
--- NOTE | 2020-10-05 11:04 | XR ---
EXAMINATION TYPE: XR chest 2V DATE OF EXAM: 10/05/2020 COMPARISON: 09/06/2018 INDICATION: Short of breath TECHNIQUE: Frontal and lateral views of the chest are obtained. FINDINGS: The heart size is normal. The pulmonary vasculature is normal. The lungs are clear. IMPRESSION: 1. No acute pulmonary process.
[2020-10-05 18:42] LABS: Basophils # (A) 0.03 X 10*3/uL (0.00-0.10); Basophils % (A) 0.3 %; Eosinophils # (A) 0.24 X 10*3/uL (0.04-0.35); Eosinophils % (A) 2.7 %; HCT 41.8 % (37.2-46.3); HGB 13.8 g/dL (12.0-15.0); Lymphocytes # (A) 2.47 X 10*3/uL (0.90-5.00); MCH 33.5 pg (27.0-32.0); MCV 101.5 fL (80.0-97.0); Mean Platelet Volume 10.7 fL (9.5-12.2); Monocytes # (A) 0.74 X 10*3/uL (0.20-1.00); Monocytes % (A) 8.4 %; Neutrophils # (A) 5.32 X 10*3/uL (1.80-7.70); Neutrophils % (A) 60.5 %; Platelet Count 292 X 10*3/uL (140-440); RBC 4.12 X 10*6/uL (4.10-5.20); RDW 13.2 % (11.5-14.5); WBC 8.81 X 10*3/uL (4.50-10.00)
[2020-10-05 23:29] LABS: African American GFR (CKD) 64.7 (60.0-200.0); Albumin 4.5 g/dL (3.80-4.90); Albumin/Globulin Ratio 2.14 (1.60-3.17); Anion Gap 10.5 mmol/L (4.00-12.00); Calcium 10.1 mg/dL (8.7-10.3); Carbon Dioxide 25.5 mmol/L (21.6-31.8); Chol/HDL Ratio 3.24; Globulin 2.1 g/dL (1.6-3.3); LDL Cholesterol,Calculated 73.8 mg/dL (0.0-131.0); Non-African American GFR(CKD) 55.8 (60.0-200.0); Potassium 4.5 mmol/L (3.5-5.5); Total Bilirubin 1.1 mg/dL (0.2-1.2); Total Protein 6.6 g/dL (6.2-8.2); VLDL Calculation 18.2 mg/dL (5.00-40.00)
[2020-10-05 23:50] LABS: Hemoglobin A1C 5.3 % (4.0-6.0)
== END | disposition home or self-care (01) ==
LOC: LABWHC1 10:02
PROVIDERS: ATTEND Internal Medicine Geriatric Medicine
DX: R05 Cough (principal); E55.9 Vitamin D deficiency, unspecified; I25.10 Atherosclerotic heart disease of native coronary artery without angina pectoris; R73.9 Hyperglycemia, unspecified
CPT/HCPCS: 36415; 71046; 80053; 80061; 82550; 82652; 83036; 84443; 85025

== ENCOUNTER → 2021-01-06 | Outpatient (CLI) | payer MEDICARE ==
[2021-01-06 12:55] LABS: African American GFR (CKD) 73.5 (60.0-200.0); Albumin 4.6 g/dL (3.80-4.90); Albumin/Globulin Ratio 1.92 (1.60-3.17); Anion Gap 8.8 mmol/L (4.00-12.00); BUN/Creat Ratio 14.44 Ratio (12.00-20.00); Calcium 9.6 mg/dL (8.7-10.3); Carbon Dioxide 27.2 mmol/L (21.6-31.8); Chol/HDL Ratio 2.9; Globulin 2.4 g/dL (1.6-3.3); LDL Cholesterol,Calculated 63.2 mg/dL (0.0-131.0); Non-African American GFR(CKD) 63.4 (60.0-200.0); Potassium 4.1 mmol/L (3.5-5.5); VLDL Calculation 16.8 mg/dL (5.00-40.00)
== END | disposition home or self-care (01) ==
LOC: LABWHC1 08:19
PROVIDERS: ATTEND Internal Medicine Interventional Cardiology
DX: E78.2 Mixed hyperlipidemia (principal)
CPT/HCPCS: 36415; 80053; 80061

== ENCOUNTER → 2021-04-19 | Outpatient (CLI) | payer MEDICARE ==
--- NOTE | 2021-04-19 18:07 | XR ---
EXAMINATION TYPE: XR lumbar spine 3V DATE OF EXAM: 04/19/2021 Comparison: None Clinical History: 76 year-old female M54.9 Findings: There is advanced hypertrophic facet arthropathy throughout the lumbar spine. Transitional lumbosacra l segment is noted as a sacralized L5. There is grade 1 anterolisthesis at L4-L5 and grade 1 retrolis thesis at L1-L2. Bulky anterior endplate spondylosis upper lumbar spine. Vertebral body heights are p reserved. Impression: 1. Transitional lumbosacral segment may be a sacralized L5. 2. Advanced hypertrophic facet arthropathy throughout. Degenerative grade 1 anterolisthesis L4-L5. De generative grade 1 retrolisthesis L1-L2. 3. Mild to moderate multilevel degenerative disc disease throughout. 4. No vertebral compression collapse.
--- NOTE | 2021-04-19 18:08 | XR ---
EXAMINATION TYPE: XR KUB DATE OF EXAM: 04/19/2021 Comparison: 01/07/2015 Clinical History: 76-year-old female with left-sided back pain, hematuria, N20.0 Findings: Lumbar spine reported separately. SI joints appear symmetric and intact. Mild degenerative spurring o f the hips. Osteitis pubis. Nonobstructive bowel gas pattern. Supine imaging limited for assessment o f free air. Mild scattered stool in the left side of the colon. No significance stool burden. No definite suspicious calcifications are seen. Impression: No definite suspicious calcifications are seen. Nonobstructive bowel gas pattern. Only mild stool wit hin the left side of the abdomen.
== END | disposition home or self-care (01) ==
LOC: RADXRMAIN 13:00
PROVIDERS: ATTEND Nurse Practitioner Gerontology
DX: M43.16 Spondylolisthesis, lumbar region (principal); M51.36 Other intervertebral disc degeneration, lumbar region; M47.816 Spondylosis without myelopathy or radiculopathy, lumbar region; R31.9 Hematuria, unspecified
CPT/HCPCS: 72100; 74018

== ENCOUNTER → 2021-05-04 | Outpatient (CLI) | payer MEDICARE ==
--- NOTE | 2021-05-04 15:05 | US ---
EXAMINATION TYPE: US kidneys/renal and bladder DATE OF EXAM: 05/04/2021 COMPARISON: CT January 07, 2015 CLINICAL HISTORY: N20.0 Kidney stone. EXAM MEASUREMENTS: Right Kidney: 9.7 x 3.4 x 4.4 cm Left Kidney: 9.5 x 4.1 x 3.7 cm Right Kidney: No hydronephrosis or masses seen Left Kidney: No hydronephrosis or masses seen Bladder: wnl There is no evidence for hydronephrosis at this point in time. No nephrolithiasis is seen. No benita s are identified. The urinary bladder is satisfactorily distended. Bilateral ureteral jets are not seen. IMPRESSION: No hydronephrosis seen bilaterally
== END | disposition home or self-care (01) ==
LOC: RADUSWWP 14:03
PROVIDERS: ATTEND Internal Medicine Geriatric Medicine
DX: N20.0 Calculus of kidney (principal)
CPT/HCPCS: 76770

== ENCOUNTER → 2021-05-25 | Outpatient (CLI) | payer MEDICARE ==
--- NOTE | 2021-05-25 08:55 | MR ---
EXAMINATION TYPE: MR lumbar spine wo con DATE OF EXAM: 05/25/2021 COMPARISON: Lumbar spine x-ray April 19, 2021 HISTORY: Other intervertebral disc degeneration, lumbar, DDD, HNP, pain TECHNIQUE: Multiplanar, multisequence imaging of the lumbar spine is performed without IV contrast. FINDINGS: There is levoconvex scoliosis centered at L2-L3 level. Sagittal images of the lumbar spine show vertebral body heights to appear satisfactory. There is grade 1 retrolisthesis L2 on L3 assuming there are 6 lumbar type vertebra. Multilevel disc desiccation with mild to moderate disc space narro wing L2-L3 level . The conus medullaris is normal in position and signal ending inferior L1 level. The bone marrow signal intensity is within normal limits. Axial images beginning at the labeled T12-L1 level appearing within normal limits. Axial images at L1-L2 level show focal right paracentral disc protrusion sagittal image 8 effacing th e anterior thecal sac. Patent Bilateral neural foramina. Axial images at the L2-L3 level show spondylolisthesis with broad-based posterior disc protrusion. Mi ld facet arthropathy bilaterally. Mild effacement of the anterior thecal sac. Mild right-sided neural foraminal narrowing. Axial images at the L3-L4 level shows moderate facet arthropathy and ligament flavum hypertrophy base and posterior lateral thecal sac seen best on axial image 17. Mild broad-based posterior disc protru devyn with left foraminal component causing mild left-sided anterior inferior neural foraminal narrowi ng. There is more moderate to severe right-sided neural foraminal narrowing with suspected right L3 e ncroachment sagittal image 11 as there is extraforaminal or lateral disc protrusion component. Axial images at the L4-L5 level mild facet arthropathy and ligamentum flavum hypertrophy effacing pos terior lateral thecal sac. Mild broad disc bulge minimally effacing the anterior thecal sac. Mild fany ateral neural foraminal narrowing on axial image 12. Axial images at the L5-L6 level show moderate facet arthropathy bilaterally. Spinal canal preserved. Patent bilateral neural foramina. Axial images at L6-S1 level shows moderate facet arthropathy bilaterally. Patent spinal canal. Paraspinal muscle bulk is maintained. IMPRESSION: Multilevel degenerative changes as detailed above. Accounting for 6 type lumbar vertebra there is most prominent findings at the L3-L4 level.
== END | disposition home or self-care (01) ==
LOC: RADMRIMAIN 08:12
PROVIDERS: ATTEND Orthopaedic Surgery
DX: M51.26 Other intervertebral disc displacement, lumbar region (principal); M43.16 Spondylolisthesis, lumbar region; M47.816 Spondylosis without myelopathy or radiculopathy, lumbar region
CPT/HCPCS: 72148

== ENCOUNTER → 2021-09-20 | Outpatient (CLI) | payer MEDICARE ==
[2021-09-20 14:59] LABS: Basophils # (A) 0.02 X 10*3/uL (0.00-0.10); Basophils % (A) 0.3 %; Eosinophils # (A) 0.15 X 10*3/uL (0.04-0.35); Eosinophils % (A) 1.9 %; HGB 13.1 g/dL (12.0-15.0); Immature Grans, Automated 0.3 %; Lymphocytes # (A) 2.44 X 10*3/uL (0.90-5.00); Lymphocytes % (A) 31.6 %; MCHC 32.8 g/dL (32.0-37.0); MCV 100.8 fL (80.0-97.0); Mean Platelet Volume 10.7 fL (9.5-12.2); Monocytes # (A) 0.62 X 10*3/uL (0.20-1.00); NRBC Per 100 WBC 0 /100 WBCS (0.0-0.0); Neutrophils # (A) 4.46 X 10*3/uL (1.80-7.70); Neutrophils % (A) 57.9 %; Platelet Count 253 X 10*3/uL (140-440); RBC 3.97 X 10*6/uL (4.10-5.20); RDW 12.4 % (11.5-14.5); WBC 7.71 X 10*3/uL (4.50-10.00)
[2021-09-20 15:28] LABS: ALT 28 U/L (8-44); AST 27 U/L (13-35); Albumin 4.3 g/dL (3.8-4.9); Albumin/Globulin Ratio 1.79 (1.60-3.17); Alkaline Phosphatase 53 U/L (41-126); BUN/Creat Ratio 15.78 Ratio (12.00-20.00); Blood Urea Nitrogen 14.2 mg/dL (9.0-27.0); Calcium 9.4 mg/dL (8.7-10.3); Carbon Dioxide 24.5 mmol/L (20.0-27.5); Chloride 105 mmol/L (96-109); Chol/HDL Ratio 2.34 Ratio; Globulin 2.4 g/dL (1.6-3.3); Glucose 122 mg/dL (70-110); LDL Cholesterol,Calculated 52.8 mg/dL (0.0-131.0); Potassium 4.2 mmol/L (3.5-5.5); Sodium 141 mmol/L (135-145); Total Protein 6.7 g/dL (6.2-8.2); VLDL Calculation 13.62 mg/dL (5.00-40.00)
== END | disposition home or self-care (01) ==
LOC: LABWHC1 10:41
PROVIDERS: ATTEND Internal Medicine Interventional Cardiology
DX: I25.10 Atherosclerotic heart disease of native coronary artery without angina pectoris (principal); E78.2 Mixed hyperlipidemia; R73.9 Hyperglycemia, unspecified; E55.9 Vitamin D deficiency, unspecified
CPT/HCPCS: 36415; 80053; 80061; 82306; 83036; 84443; 85025

== ENCOUNTER → 2022-02-07 | Outpatient (CLI) | payer MEDICARE ==
[2022-02-07 17:46] LABS: Basophils # (A) 0.02 X 10*3/uL (0.00-0.10); Basophils % (A) 0.3 %; Eosinophils # (A) 0.29 X 10*3/uL (0.04-0.35); Eosinophils % (A) 3.7 %; HCT 41.2 % (37.2-46.3); HGB 13.3 g/dL (12.0-15.0); Immature Grans, Automated 0.3 %; Lymphocytes # (A) 2.34 X 10*3/uL (0.90-5.00); Lymphocytes % (A) 29.7 %; MCH 32.6 pg (27.0-32.0); MCHC 32.3 g/dL (32.0-37.0); Mean Platelet Volume 10.5 fL (9.5-12.2); Monocytes # (A) 0.69 X 10*3/uL (0.20-1.00); Monocytes % (A) 8.8 %; NRBC Per 100 WBC 0 /100 WBCS (0.0-0.0); Neutrophils # (A) 4.52 X 10*3/uL (1.80-7.70); Neutrophils % (A) 57.2 %; Platelet Count 250 X 10*3/uL (140-440); RBC 4.08 X 10*6/uL (4.10-5.20); RDW 13.2 % (11.5-14.5); WBC 7.88 X 10*3/uL (4.50-10.00)
[2022-02-07 18:08] LABS: ALT 26 U/L (8-44); AST 27 U/L (13-35); African American GFR (CKD) 84.2 (60.0-200.0); Albumin 4.4 g/dL (3.8-4.9); Albumin/Globulin Ratio 1.69 (1.60-3.17); Alkaline Phosphatase 61 U/L (41-126); BUN/Creat Ratio 15.13 Ratio (12.00-20.00); Blood Urea Nitrogen 12.1 mg/dL (9.0-27.0); Calcium 9.4 mg/dL (8.7-10.3); Carbon Dioxide 25.9 mmol/L (20.0-27.5); Chloride 105 mmol/L (96-109); Chol/HDL Ratio 2.39 Ratio; Globulin 2.6 g/dL (1.6-3.3); Glucose 115 mg/dL (70-110); LDL Cholesterol,Calculated 59.4 mg/dL (0.0-131.0); Non-African American GFR(CKD) 72.6 (60.0-200.0); Potassium 4.6 mmol/L (3.5-5.5); Sodium 141 mmol/L (135-145); VLDL Calculation 10.44 mg/dL (5.00-40.00)
== END | disposition home or self-care (01) ==
LOC: LABWHC1 11:07
PROVIDERS: ATTEND Internal Medicine Geriatric Medicine
DX: I25.10 Atherosclerotic heart disease of native coronary artery without angina pectoris (principal); R73.9 Hyperglycemia, unspecified; N18.9 Chronic kidney disease, unspecified
CPT/HCPCS: 36415; 80053; 80061; 83036; 84443; 85025

== ENCOUNTER → 2022-02-18 | Outpatient (CLI) | payer MEDICARE | END | disposition home or self-care (01) | LOC: RADMAMWWP 11:07 | PROVIDERS: ATTEND Internal Medicine Geriatric Medicine | DX: Z53.9 Procedure and treatment not carried out, unspecified reason (principal) ==

== ENCOUNTER → 2022-06-18 | Outpatient (CLI) | payer MEDICARE ==
--- NOTE | 2022-06-18 17:07 | US ---
EXAMINATION TYPE: US carotid duplex BILAT DATE OF EXAM: 06/18/2022 COMPARISON: US 2012 CLINICAL HISTORY: I65.23 OCCLUSION AND STENOSIS OF BILATERAL CAROTID. Recent fall. Prior smoker, hype rtension, hyperlipidemia. TECHNIQUE: Carotid duplex ultrasound examination. Indirect Doppler criteria was utilized. FINDINGS: EXAM MEASUREMENTS: RIGHT: Peak Systolic Velocity (PSV) cm/sec ----- Right CCA: 89.7 ----- Right ICA: 180.5 ----- Right ECA: 122.1 ICA/CCA ratio: 2.0 RIGHT: End Diastole cm/sec ----- Right CCA: 21.5 ----- Right ICA: 42.6 ----- Right ECA: 20.4 LEFT: Peak Systolic Velocity (PSV) cm/sec ----- Left CCA: 108.0 ----- Left ICA: 135.0 ----- Left ECA: 118.9 ICA/CCA ratio: 1.2 LEFT: End Diastole cm/sec ----- Left CCA: 22.3 ----- Left ICA: 25.2 ----- Left ECA: 12.3 VERTEBRALS (direction of flow): Right Vertebral: Antegrade Left Vertebral: Antegrade Rhythm: Normal NEW MEDIA STRATEGIST NOTES: Large amount of plaque seen within right bulb/prox ICA. Plaque also seen in left b ulb. Elevated velocities within the right ICA. Ratio was 2.0 on the right. IMPRESSION: Atheromatous plaquing contributing to moderate bilateral internal carotid artery stenosis, between 50 and 69%, slightly greater on the right than left. Correlate with the patient's symptoms. Criteria for Assigning % of Stenosis / Diameter reduction (Estimation based on the indirect measurements of the internal carotid artery velocities (ICA PSV). 1. Normal (no stenosis)=ICA PSV < 125 cm/s: ratio < 2.0: ICA EDV<40 cm/s. 2. Less than 50% stenosis=ICA PSV < 125 cm/s: ratio < 2.0: ICA EDV<40 cm/s. 3. 50 to 69% stenosis=ICA PSV of 125 to 230 cm/s: ratio 2.0 ? 4.0: ICA EDV 40-100 cm/s. 4. Greater than 70% stenosis to near occlusion= ICA PSV > 230 cm/s: ratio > 4.0: ICA EDV > 100 cm/s. 5. Near occlusion= ICA PSV velocities may be low or undetectable: variable ratio and ICA EDV. 6. Total occlusion=unable to detect flow.
== END | disposition home or self-care (01) ==
LOC: RADUSWWP 10:58
PROVIDERS: ATTEND Internal Medicine Geriatric Medicine
DX: I65.23 Occlusion and stenosis of bilateral carotid arteries (principal); I10 Essential (primary) hypertension; E78.5 Hyperlipidemia, unspecified; Z87.891 Personal history of nicotine dependence
CPT/HCPCS: 93880

== ENCOUNTER → 2022-07-11 | Outpatient (CLI) | payer MEDICARE ==
[2022-07-11 08:35] LABS: ALT 29 U/L (4-34); AST 31 U/L (14-36); African American GFR (CKD) 80 (>60 ml/min/1.73 sqM); Albumin 4.3 g/dL (3.5-5.0); Alkaline Phosphatase 55 U/L (38-126); Anion Gap 8 mmol/L; Blood Urea Nitrogen 18 mg/dL (7-17); Calcium 9.2 mg/dL (8.4-10.2); Carbon Dioxide 27 mmol/L (22-30); Chloride 107 mmol/L (98-107); Glucose 124 mg/dL (74-99); Non-African American GFR(CKD) 70 (>60 ml/min/1.73 sqM); Potassium 3.9 mmol/L (3.5-5.1); Sodium 142 mmol/L (137-145); Total Bilirubin 1.3 mg/dL (0.2-1.3); Total Protein 7.1 g/dL (6.3-8.2)
[2022-07-11 13:59] LABS: Basophils # (A) 0.02 X 10*3/uL (0.00-0.10); Basophils % (A) 0.2 %; Eosinophils # (A) 0.15 X 10*3/uL (0.04-0.35); Eosinophils % (A) 1.7 %; HCT 40.2 % (37.2-46.3); HGB 13.6 g/dL (12.0-15.0); Lymphocytes # (A) 2.48 X 10*3/uL (0.90-5.00); Lymphocytes % (A) 28.3 %; MCH 33.9 pg (27.0-32.0); MCHC 33.8 g/dL (32.0-37.0); MCV 100.2 fL (80.0-97.0); Mean Platelet Volume 10.9 fL (9.5-12.2); Monocytes # (A) 0.88 X 10*3/uL (0.20-1.00); Neutrophils # (A) 5.23 X 10*3/uL (1.80-7.70); Neutrophils % (A) 59.7 %; Platelet Count 240 X 10*3/uL (140-440); RBC 4.01 X 10*6/uL (4.10-5.20); RDW 13.1 % (11.5-14.5); WBC 8.77 X 10*3/uL (4.50-10.00)
[2022-07-11 18:13] LABS: LDL Cholesterol,Calculated 54.6 mg/dL (0.0-131.0); VLDL Calculation 17.14 mg/dL (5.00-40.00)
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
== END | disposition home or self-care (01) ==
LOC: RADBDWWP 07:17
PROVIDERS: ATTEND Internal Medicine Geriatric Medicine
DX: M81.0 Age-related osteoporosis without current pathological fracture (principal); N18.9 Chronic kidney disease, unspecified; I25.10 Atherosclerotic heart disease of native coronary artery without angina pectoris; R73.9 Hyperglycemia, unspecified; E55.9 Vitamin D deficiency, unspecified; I10 Essential (primary) hypertension; Z79.1 Long term (current) use of non-steroidal anti-inflammatories (NSAID); Z85.3 Personal history of malignant neoplasm of breast; Z90.13 Acquired absence of bilateral breasts and nipples
CPT/HCPCS: 77080; 80053; 80061; 82306; 83036; 84443; 85025

== ENCOUNTER → 2022-10-16 | Outpatient (CLI) | payer MEDICARE ==
[2022-10-16 14:24] LABS: Basophils # (A) 0.03 X 10*3/uL (0.00-0.10); Basophils % (A) 0.4 %; Eosinophils % (A) 1.2 %; HCT 43.4 % (37.2-46.3); HGB 14.1 g/dL (12.0-15.0); Immature Grans, Automated 0.2 %; Lymphocytes # (A) 2.71 X 10*3/uL (0.90-5.00); Lymphocytes % (A) 33.1 %; MCH 32.9 pg (27.0-32.0); MCHC 32.5 g/dL (32.0-37.0); MCV 101.4 fL (80.0-97.0); Mean Platelet Volume 10.7 fL (9.5-12.2); Monocytes # (A) 0.68 X 10*3/uL (0.20-1.00); Monocytes % (A) 8.3 %; NRBC Per 100 WBC 0 /100 WBCS (0.0-0.0); Neutrophils # (A) 4.64 X 10*3/uL (1.80-7.70); Neutrophils % (A) 56.8 %; Platelet Count 266 X 10*3/uL (140-440); RBC 4.28 X 10*6/uL (4.10-5.20); RDW 12.9 % (11.5-14.5); WBC 8.18 X 10*3/uL (4.50-10.00)
[2022-10-16 17:01] LABS: ALT 26 U/L (8-44); AST 26 U/L (13-35); African American GFR (CKD) 70.9 (60.0-200.0); Albumin 4.3 g/dL (3.8-4.9); Albumin/Globulin Ratio 1.56 (1.60-3.17); Alkaline Phosphatase 57 U/L (41-126); BUN/Creat Ratio 17.56 Ratio (12.00-20.00); Blood Urea Nitrogen 16.1 mg/dL (9.0-27.0); Calcium 9.7 mg/dL (8.7-10.3); Chloride 104 mmol/L (96-109); Chol/HDL Ratio 2.66 Ratio; Globulin 2.8 g/dL (1.6-3.3); Glucose 131 mg/dL (70-110); Iron 129 ug/dL (50-170); LDL Cholesterol,Calculated 63.6 mg/dL (0.0-131.0); Non-African American GFR(CKD) 61.2 (60.0-200.0); Potassium 4.3 mmol/L (3.5-5.5); Sodium 140 mmol/L (135-145); Total Iron Binding Capacity 379 ug/dL (228-460); Total Protein 7.1 g/dL (6.2-8.2); VLDL Calculation 12.48 mg/dL (5.00-40.00)
== END | disposition home or self-care (01) ==
LOC: LABWHC1 09:54
PROVIDERS: ATTEND Internal Medicine Interventional Cardiology
DX: I25.10 Atherosclerotic heart disease of native coronary artery without angina pectoris (principal); E78.2 Mixed hyperlipidemia; D64.9 Anemia, unspecified
CPT/HCPCS: 36415; 80053; 80061; 82607; 82746; 83540; 83550; 84443; 85025

== ENCOUNTER → 2022-10-17 | Outpatient (CLI) | payer MEDICARE | END | disposition home or self-care (01) | LOC: LABWHC1 11:48 | PROVIDERS: ATTEND Internal Medicine Geriatric Medicine | DX: I25.10 Atherosclerotic heart disease of native coronary artery without angina pectoris (principal); E78.2 Mixed hyperlipidemia; D64.9 Anemia, unspecified | CPT/HCPCS: 36415; 82746 ==

== ENCOUNTER → 2023-02-24 | Outpatient (CLI) | payer MEDICARE ==
[2023-02-24 15:46] LABS: Basophils # (A) 0.01 X 10*3/uL (0.00-0.10); Basophils % (A) 0.1 %; Eosinophils % (A) 1.3 %; HCT 41.6 % (37.2-46.3); HGB 13.7 d/dL (12.0-15.0); Lymphocytes # (A) 2.52 X 10*3/uL (0.90-5.00); Lymphocytes % (A) 33.6 %; MCH 33.7 pg (27.0-32.0); MCHC 32.9 d/dL (32.0-37.0); MCV 102.5 FL (80.0-97.0); Mean Platelet Volume 11.1 FL (9.5-12.2); Monocytes # (A) 0.75 X 10*3/uL (0.20-1.00); NRBC Per 100 WBC 0 X 10*3/uL (0.00-0.01); Neutrophils # (A) 4.11 X 10*3/uL (1.80-7.70); Neutrophils % (A) 54.7 %; Platelet Count 239 X 10*3/uL (140-440); RBC 4.06 X 10*6/uL (4.10-5.20); RDW 13.1 % (11.5-14.5); WBC 7.51 X 10*3/uL (4.50-10.00)
[2023-02-24 16:08] LABS: ALT 32 U/L (8-44); AST 28 U/L (13-35); Albumin 4.6 d/dL (3.8-4.9); Alkaline Phosphatase 56 U/L (41-126); BUN/Creat Ratio 11.89 Ratio (12.00-20.00); Blood Urea Nitrogen 10.7 mg/dL (9.0-27.0); Calcium 9.9 mg/dL (8.7-10.3); Carbon Dioxide 25.9 mmol/L (21.6-31.8); Chloride 107 mmol/L (96-109); Chol/HDL Ratio 2.46 Ratio; Creatine Kinase 66 U/L (26-186); Globulin 2.3 d/dL (1.6-3.3); Glucose 123 mg/dL (70-110); LDL Cholesterol,Calculated 54.2 mg/dL (0.0-131.0); Potassium 4.6 mmol/L (3.5-5.5); Sodium 144 mmol/L (135-145); Total Bilirubin 0.8 mg/dL (0.3-1.2); Total Protein 6.9 d/dL (6.2-8.2); Uric Acid 5.5 mg/dL (2.9-7.7); VLDL Calculation 17.68 mg/dL (5.00-40.00)
== END | disposition home or self-care (01) ==
LOC: LABWHC1 10:58
PROVIDERS: ATTEND Internal Medicine Geriatric Medicine
DX: C79.81 Secondary malignant neoplasm of breast (principal); I12.9 Hypertensive chronic kidney disease with stage 1 through stage 4 chronic kidney disease, or unspecified chronic kidney disease; N18.9 Chronic kidney disease, unspecified; I25.10 Atherosclerotic heart disease of native coronary artery without angina pectoris; R73.9 Hyperglycemia, unspecified
CPT/HCPCS: 36415; 80053; 80061; 82550; 83036; 84443; 84550; 85025

== ENCOUNTER → 2023-06-27 | Outpatient (CLI) | payer MEDICARE ==
[2023-06-27 18:34] LABS: ALT 26 U/L (8-44); AST 24 U/L (13-35); Chol/HDL Ratio 2.25 Ratio; LDL Cholesterol,Calculated 50.8 mg/dL (0.0-131.0); VLDL Calculation 11.88 mg/dL (5.00-40.00)
== END | disposition home or self-care (01) ==
LOC: LABWHC1 10:41
PROVIDERS: ATTEND Internal Medicine Interventional Cardiology
DX: Z00.00 Encounter for general adult medical examination without abnormal findings (principal); I12.9 Hypertensive chronic kidney disease with stage 1 through stage 4 chronic kidney disease, or unspecified chronic kidney disease; I25.10 Atherosclerotic heart disease of native coronary artery without angina pectoris; E78.2 Mixed hyperlipidemia; E55.9 Vitamin D deficiency, unspecified; N18.9 Chronic kidney disease, unspecified; R73.9 Hyperglycemia, unspecified
CPT/HCPCS: 36415; 80061; 84450; 84460

== ENCOUNTER → 2023-07-01 | Outpatient (CLI) | payer MEDICARE ==
[2023-07-01 16:14] LABS: BUN/Creat Ratio 12.78 Ratio (12.00-20.00); Blood Urea Nitrogen 11.5 mg/dL (9.0-27.0); Chloride 103 mmol/L (96-109); Creatine Kinase 99 U/L (26-186); Glucose 132 mg/dL (70-110); Potassium 4.2 mmol/L (3.5-5.5); Sodium 141 mmol/L (135-145); Uric Acid 5.2 mg/dL (2.9-7.7)
[2023-07-01 16:15] LABS: ALT 30 U/L (8-44); AST 26 U/L (13-35); Albumin 4.5 g/dL (3.8-4.9); Albumin/Globulin Ratio 2.05 Ratio (1.60-3.17); Alkaline Phosphatase 58 U/L (41-126); Calcium 9.8 mg/dL (8.7-10.3); Carbon Dioxide 25.3 mmol/L (21.6-31.8); Globulin 2.2 g/dL (1.6-3.3); Total Bilirubin 0.8 mg/dL (0.3-1.2); Total Protein 6.7 g/dL (6.2-8.2)
== END | disposition home or self-care (01) ==
LOC: LABWHC1 10:41
PROVIDERS: ATTEND Internal Medicine Geriatric Medicine
DX: Z00.00 Encounter for general adult medical examination without abnormal findings (principal); I12.9 Hypertensive chronic kidney disease with stage 1 through stage 4 chronic kidney disease, or unspecified chronic kidney disease; I25.10 Atherosclerotic heart disease of native coronary artery without angina pectoris; N18.9 Chronic kidney disease, unspecified; E78.2 Mixed hyperlipidemia; E55.9 Vitamin D deficiency, unspecified; R73.9 Hyperglycemia, unspecified
CPT/HCPCS: 36415; 80053; 82306; 82550; 83036; 84443; 84550

== ENCOUNTER → 2023-07-02 | Outpatient (CLI) | payer MEDICARE ==
[2023-07-02 11:09] LABS: Basophils % (A) 0 %; Eosinophils # (A) 0.1 k/uL (0-0.7); Eosinophils % (A) 1 %; HCT 41.9 % (34.0-46.0); HGB 14.3 gm/dL (11.4-16.0); Lymphocytes # (A) 2.8 k/uL (1.0-4.8); Lymphocytes % (A) 34 %; MCH 34.6 pg (25.0-35.0); MCHC 34.1 g/dL (31.0-37.0); MCV 101.3 fL (80.0-100.0); Macrocytosis Slight; Mean Platelet Volume 8.2; Monocytes # (A) 0.7 k/uL (0-1.0); Monocytes % (A) 8 %; Neutrophils # (A) 4.3 k/uL (1.3-7.7); Neutrophils % (A) 53 %; Platelet Count 229 k/uL (150-450); RBC 4.13 m/uL (3.80-5.40); WBC 8.2 k/uL (3.8-10.6)
== END | disposition home or self-care (01) ==
LOC: LABWHC1 10:52
PROVIDERS: ATTEND Internal Medicine Geriatric Medicine
DX: Z00.00 Encounter for general adult medical examination without abnormal findings (principal); I12.9 Hypertensive chronic kidney disease with stage 1 through stage 4 chronic kidney disease, or unspecified chronic kidney disease; N18.9 Chronic kidney disease, unspecified; I25.10 Atherosclerotic heart disease of native coronary artery without angina pectoris; E78.2 Mixed hyperlipidemia; E55.9 Vitamin D deficiency, unspecified; R73.9 Hyperglycemia, unspecified
CPT/HCPCS: 36415; 85025

== ENCOUNTER → 2023-10-23 | Outpatient (CLI) | payer MEDICARE ==
--- NOTE | 2023-10-23 12:30 | XR ---
EXAMINATION TYPE: XR chest 2V DATE OF EXAM: 10/23/2023 COMPARISON: 10/05/2020 HISTORY: Chest pain TECHNIQUE: Frontal and lateral views of the chest are obtained. FINDINGS: There is no focal air space opacity. No evidence for pneumothorax. No pleural effusion. The cardiac silhouette size is within normal limits. The osseous structures are grossly intact. IMPRESSION: 1. No acute cardiopulmonary process.
[2023-10-23 21:35] LABS: HCT 43.2 % (37.2-46.3); HGB 14.3 g/dL (12.0-15.0); MCH 33.2 pg (27.0-32.0); MCHC 33.1 g/dL (32.0-37.0); MCV 100.2 FL (80.0-97.0); Mean Platelet Volume 10.4 FL (9.5-12.2); NRBC Per 100 WBC 0 X 10*3/uL (0.00-0.01); Platelet Count 265 X 10*3/uL (140-440); RBC 4.31 X 10*6/uL (4.10-5.20); RDW 13.4 % (11.5-14.5); WBC 17.68 X 10*3/uL (4.50-10.00)
[2023-10-23 21:53] LABS: Chol/HDL Ratio 2.99 Ratio; LDL Cholesterol,Calculated 99.7 mg/dL (0.0-131.0)
[2023-10-23 21:54] LABS: ALT 44 U/L (8-44); AST 20 U/L (13-35); Albumin 4.5 g/dL (3.8-4.9); Albumin/Globulin Ratio 1.88 Ratio (1.60-3.17); Alkaline Phosphatase 53 U/L (41-126); Blood Urea Nitrogen 13.5 mg/dL (9.0-27.0); Calcium 9.9 mg/dL (8.7-10.3); Carbon Dioxide 29.6 mmol/L (21.6-31.8); Globulin 2.4 g/dL (1.6-3.3); Glucose 97 mg/dL (70-110); Total Bilirubin 0.9 mg/dL (0.3-1.2); Total Protein 6.9 g/dL (6.2-8.2)
[2023-10-23 22:03] LABS: Chloride 99 mmol/L (96-109); Potassium 3.9 mmol/L (3.5-5.5); Sodium 142 mmol/L (135-145)
[2023-10-23 22:04] LABS: Basophils # (M) 0 X 10*3/uL (0.00-0.10); Eosinophils # (M) 0 X 10*3/uL (0.04-0.35); Lymphocytes # (M) 3.89 X 10*3/uL (0.90-5.00); Neutrophils # (M) 11.49 X 10*3/uL (1.80-7.70); Neutrophils % (M) 65 %
== END | disposition home or self-care (01) ==
LOC: LABWHC1 11:24
PROVIDERS: ATTEND Internal Medicine Interventional Cardiology
DX: I12.9 Hypertensive chronic kidney disease with stage 1 through stage 4 chronic kidney disease, or unspecified chronic kidney disease (principal); E78.2 Mixed hyperlipidemia; E55.9 Vitamin D deficiency, unspecified; N18.9 Chronic kidney disease, unspecified; R07.9 Chest pain, unspecified; R73.9 Hyperglycemia, unspecified
CPT/HCPCS: 36415; 71046; 80053; 80061; 82306; 83036; 84443; 85025

== ENCOUNTER → 2024-03-17 | Outpatient (CLI) | payer MEDICARE ==
[2024-03-17 16:01] LABS: ALT 32 U/L (8-44); AST 25 U/L (13-35); Albumin 4.6 g/dL (3.8-4.9); Alkaline Phosphatase 55 U/L (41-126); Blood Urea Nitrogen 13.1 mg/dL (9.0-27.0); Calcium 9.6 mg/dL (8.7-10.3); Chloride 103 mmol/L (96-109); Chol/HDL Ratio 2.47 Ratio; Glucose 138 mg/dL (70-110); LDL Cholesterol,Calculated 55.6 mg/dL (0.0-131.0); Potassium 4.5 mmol/L (3.5-5.5); Sodium 142 mmol/L (135-145); Total Bilirubin 0.9 mg/dL (0.3-1.2); Total Protein 6.6 g/dL (6.2-8.2)
== END | disposition home or self-care (01) ==
LOC: LABWHC1 09:59
PROVIDERS: ATTEND Internal Medicine Interventional Cardiology
DX: E78.2 Mixed hyperlipidemia (principal)
CPT/HCPCS: 36415; 80053; 80061

== ENCOUNTER 2024-06-06 12:31 | Emergency (ER) | payer MEDICARE ==
[2024-06-06 12:45] VITALS: RESP 18
--- NOTE | 2024-06-06 13:18 | ED ---
General Adult HPI - General Chief complaint: Abdominal Pain Stated complaint: R ab pain Time Seen by Provider: 06/06/24 12:51 Source: patient, RN notes reviewed Mode of arrival: ambulatory Limitations: no limitations - History of Present Illness Initial comments: Patient is a 79-year-old female present to the emergency department with concerns for abdominal discomfort. Onset of symptoms was 2 days ago. Discomfort is right side of abdomen. Discomfort does increase with movement. Discomfort may be a little bit in the back but mostly right mid abdomen. Patient has some decreased appetite. Mild nausea. Discomfort is mild and tolerable, patient does not want pain or nausea medicine. No constipation or diarrhea. No vomiting. No fever. No dysuria or hematuria - Related Data Home Medications Medication Instructions Recorded Confirmed Aspirin 81 - 162 mg PO DAILY 01/07/15 02/11/15 Atorvastatin [Lipitor] 40 mg PO DAILY 01/07/15 02/11/15 Cholecalciferol [Vitamin D3 (25 2,000 unit PO DAILY 01/07/15 02/11/15 Mcg = 1000 Iu)] Nitroglycerin Sl Tabs [Nitrostat] 0.4 mg SUBLINGUAL DIRECTED PRN 01/07/15 02/11/15 Redford-3 Fatty Acids [[place]ford-3] 1,000 mg PO DAILY 01/07/15 02/11/15 Ubidecarenone [Co Q-10] 200 mg PO DAILY 01/07/15 02/11/15 atenoloL 25 mg PO DAILY 01/07/15 02/11/15 Multivitamins, Thera [Multivitamin 1 each PO DAILY 02/01/15 02/11/15 (formulary)] Previous Rx's Medication Instructions Recorded Losartan [Cozaar] 50 mg PO DAILY #90 tab 02/06/15 HYDROcodone/APAP 5-325MG [[place] 1 tab PO Q6HR PRN #12 tab 10/03/18 5-325] Dicyclomine [Bentyl] 10 mg PO QID PRN #10 tablet 06/06/24 Allergies Allergy/AdvReac Type Severity Reaction Status Date / Time Antihistamines - Alkylamine Allergy Rapid Verified 06/06/24 12:48 Heart Rate Antihistamines - Ethanolamine Allergy Rapid Verified 06/06/24 12:48 Heart Rate Antihistamines - Allergy Rapid Verified 06/06/24 12:48 Ethylenediamine Heart Rate Antihistamines - Piperazine Allergy Rapid Verified 06/06/24 12:48 Heart Rate Antihistamines - Piperidine Allergy Rapid Verified 06/06/24 12:48 Heart Rate cortisone Allergy Rapid Verified 06/06/24 12:48 Heart Rate epinephrine Allergy Rapid Verified 06/06/24 12:48 Heart Rate morphine Allergy Nausea & Verified 06/06/24 12:48 Vomiting Penicillins Allergy Rash/Hives Verified 06/06/24 12:48 Review of Systems ROS Statement: Those systems with pertinent positive or pertinent negative responses have been documented in the HPI. ROS Other: All systems not noted in ROS Statement are negative. Constitutional: Denies: fever Eyes: Denies: eye pain ENT: Denies: ear pain Respiratory: Denies: dyspnea Cardiovascular: Denies: chest pain Gastrointestinal: Reports: as per HPI, abdominal pain, nausea. Denies: vomiting, diarrhea, constipation Past Medical History Past Medical History: Coronary Artery Disease (CAD), Cancer, Chest Pain / Angina, Deep Vein Thrombosis (DVT), Hyperlipidemia, Hypertension, Myocardial Infarction (MD) Additional Past Medical History / Comment(s): Breast Cancer , DVT RT LEG 1990 POST FX,FREQ DIARRHEA,IBS,KIDNEY STONES,CHRONIC RASH TO LT FOOT,UMBILICAL HERNIA Last Myocardial Infarction Date:: History of Any Multi-Drug Resistant Organisms: None Reported Past Surgical History: Adenoidectomy, Breast Surgery, Heart Catheterization With Stent, Hysterectomy, Orthopedic Surgery, Tonsillectomy Additional Past Surgical History / Comment(s): Bilateral Mastactomy,heart stents x1. right total knee replacement. Past Anesthesia/Blood Transfusion Reactions: Postoperative Nausea & Vomiting (PONV) Date of Last Stent Placement:: 2009 Past Psychological History: No Psychological Hx Reported Past Alcohol Use History: Occasional Past Drug Use History: None Reported - Past Family History Sister(s) Family Medical History: Cancer Additional Family Medical History / Comment(s): BREAST Mother Family Medical History: CVA/TIA Father Family Medical History: Cancer Additional Family Medical History / Comment(s): LUNG CA General Exam Limitations: no limitations General appearance: alert, in no apparent distress Head exam: Present: normocephalic Eye exam: Present: normal appearance Neck exam: Present: normal inspection Respiratory exam: Present: normal lung sounds bilaterally Cardiovascular Exam: Present: regular rate, normal rhythm Expanded Peripheral pulses: 2+: Dorsalis Pedis (R), Dorsalis Pedis (L) GI/Abdominal exam: Present: soft, tenderness (Mild tenderness right mid abdomen), normal bowel sounds. Absent: distended, guarding, rebound, rigid, pulsatile mass Extremities exam: Present: normal inspection. Absent: calf tenderness Back exam: Present: normal inspection. Absent: CVA tenderness (R), vertebral tenderness Neurological exam: Present: alert Psychiatric exam: Present: normal affect, normal mood Skin exam: Present: normal color Course Vital Signs 06/06/24 06/06/24 12:40 13:55 Temperature 98.0 F Pulse Rate 70 69 Respiratory 18 18 Rate Blood Pressure 153/79 162/70 O2 Sat by Pulse 98 96 Oximetry Medical Decision Making - Medical Decision Making Was pt. sent in by a medical professional or institution (, PA, MACHINE RIVETER, urgent care, hospital, or assisted...) When possible be specific @ -No Did you speak to anyone other than the patient for history (EMS, parent, family, police, friend...)? What history was obtained from this source @ -No Did you review nursing and triage notes (agree or disagree)? Why? @ -I reviewed and agree with nursing and triage notes Were old charts reviewed (outside hosp., previous admission, EMS record, old EKG, old radiological studies, urgent care reports/EKG's, assisted records)? Report findings @ -No old charts were reviewed Differential Diagnosis (chest pain, altered mental status, abdominal pain women, abdominal pain men, vaginal bleeding, weakness, fever, dyspnea, syncope, he adache, dizziness, GI bleed, back pain, seizure, CVA, palpatations, mental health, musculoskeletal)? @ -Differential Abdominal Pain Women: Appendicitis, Cholecystitis, diverticulosis, ischemic bowel, pancreatitis, hepatitis, UTI, gastroenteritis, AAA, incarcerated hernia, bowel obstruction, constipation, inflammatory bowel, hepatitis, peptic ulcer disease, splenic infarction, perforated viscus, vulvitis, ovarian torsion, PID, kidney stone, placenta abruption, this is not meant to be an all-inclusive list EKG interpreted by me (3pts min.). @ -As above X-rays interpreted by me (1pt min.). @ -None done CT interpreted by me (1pt min.). @ -CT scan of the abdomen pelvis does not reveal acute abnormality U/S interpreted by me (1pt. min.). @ -None done What testing was considered but not performed or refused? (CT, X-rays, U/S, labs)? Why? @ -None What meds were considered but not given or refused? Why? @ -Offered medication for nausea and pain however patient has refused Did you discuss the management of the patient with other professionals (professionals i.e. , PA, MACHINE RIVETER, lab, RT, psych nurse, aids social worker, mail officer, teacher, military police officer, renal case manager)? Give summary @ -No Was smoking cessation discussed for >3mins.? @ -No Was critical care preformed (if so, how long)? @ -No Were there social determinants of health that impacted care today? How? (Homelessness, low income, unemployed, alcoholism, drug addiction, transportation, low edu. Level, literacy, decrease access to med. care, usp, rehab)? @ -No Was there de-escalation of care discussed even if they declined (Discuss DNR or withdrawal of care, Hospice)? DNR status @ -No What co-morbidities impacted this encounter? (DM, HTN, Smoking, COPD, CAD, Cancer, CVA, ARF, Chemo, Hep., AIDS, mental health diagnosis, sleep apnea, morbid obesity)? @ -None Was patient admitted / discharged? Hospital course, mention meds given and route, prescriptions, significant lab abnormalities, going to OR and other pertinent info. @ -Patient presents with right sided abdominal discomfort. Only mild discomfort on exam. Patient does not want medications. Workup in emergency department unremarkable.. Show and family are updated on results and plan Undiagnosed new problem with uncertain prognosis? @ -No Drug Therapy requiring intensive monitoring for toxicity (Heparin, Nitro, Insulin, Cardizem)? @ -No Were any procedures done? @ -No Diagnosis/symptom? @ -Abdominal pain Acute, or Chronic, or Acute on Chronic? @ -Acute Uncomplicated (without systemic symptoms) or Complicated (systemic symptoms)? @ -Default Side effects of treatment? @ -No Exacerbation, Progression, or Severe Exacerbation? @ -No Poses a threat to life or bodily function? How? (Chest pain, USA, MD, pneumonia, PE, COPD, DKA, ARF, appy, cholecystitis, CVA, Diverticulitis, Homicidal, Suicidal, threat to staff... and all critical care pts) @ -No - Lab Data Result diagrams: 06/06/24 13:27 06/06/24 13:27 Lab Results 06/06/24 06/06/24 06/06/24 Range/Units 13:27 13: 13:27 WBC 9.6 (3.8-10.6) k/uL RBC 4.20 (3.80-5.40) m/uL Hgb 14.0 (11.4-16.0) gm/dL Hct 41.5 (34.0-46.0) % MCV 98.9 (80.0-100.0) fL MCH 33.3 (25.0-35.0) pg MCHC 33.7 (31.0-37.0) g/dL RDW 12.4 (11.5-15.5) % Plt Count 202 (150-450) k/uL MPV 7.8 Neutrophils % 57 % Lymphocytes % 30 % Monocytes % 10 % Eosinophils % 0 % Basophils % 0 % Neutrophils # 5.4 (1.3-7.7) k/uL Lymphocytes # 2.9 (1.0-4.8) k/uL Monocytes # 0.9 (0-1.0) k/uL Eosinophils # 0.0 (0-0.7) k/uL Basophils # 0.0 (0-0.2) k/uL PT 10.8 (10.0-12.5) sec INR 1.0 (<1.2) APTT 28.3 (22.0-30.0) sec Sodium (137-145) mmol/L Potassium (3.5-5.1) mmol/L Chloride (98-107) mmol/L Carbon Dioxide (22-30) mmol/L Anion Gap mmol/L BUN (7-17) mg/dL Creatinine (0.52-1.04) mg/dL Est GFR (CKD-EPI)AfAm (>60 ml/min/1.73 sqM) Est GFR (CKD-EPI)NonAf (>60 ml/min/1.73 sqM) Glucose (74-99) mg/dL Calcium (8.4-10.2) mg/dL Total Bilirubin (0.2-1.3) mg/dL AST (14-36) U/L ALT (4-34) U/L Alkaline Phosphatase (38-126) U/L Total Protein (6.3-8.2) g/dL Albumin (3.5-5.0) g/dL Amylase (30-110) U/L Lipase (23-300) U/L Urine Color Colorless Urine Appearance Clear (Clear) Urine pH 5.0 (5.0-8.0) Ur Specific [place] 1.008 (1.001-1.035) Urine Protein Negative (Negative) Urine Glucose (UA) Negative (Negative) Urine Ketones Negative (Negative) Urine Blood Small H (Negative) Urine Nitrite Negative (Negative) Urine Bilirubin Negative (Negative) Urine Urobilinogen <2.0 (<2.0) mg/dL Ur Leukocyte Esterase Small H (Negative) Urine RBC 5 (0-5) /hpf Urine WBC 1 (0-5) /hpf Ur Squamous Epith Cells 2 (0-4) /hpf Urine Bacteria Occasional H (None) /hpf Urine Mucus Rare H (None) /hpf 06/06/24 Range/Units 13:27 WBC (3.8-10.6) k/uL RBC (3.80-5.40) m/uL Hgb (11.4-16.0) gm/dL Hct (34.0-46.0) % MCV (80.0-100.0) fL MCH (25.0-35.0) pg MCHC (31.0-37.0) g/dL RDW (11.5-15.5) % Plt Count (150-450) k/uL MPV Neutrophils % % Lymphocytes % % Monocytes % % Eosinophils % % Basophils % % Neutrophils # (1.3-7.7) k/uL Lymphocytes # (1.0-4.8) k/uL Monocytes # (0-1.0) k/uL Eosinophils # (0-0.7) k/uL Basophils # (0-0.2) k/uL PT (10.0-12.5) sec INR (<1.2) APTT (22.0-30.0) sec Sodium 138 (137-145) mmol/L Potassium 3.7 (3.5-5.1) mmol/L Chloride 106 (98-107) mmol/L Carbon Dioxide 24 (22-30) mmol/L Anion Gap 8 mmol/L BUN 14 (7-17) mg/dL Creatinine 0.83 (0.52-1.04) mg/dL Est GFR (CKD-EPI)AfAm 79 (>60 ml/min/1.73 sqM) Est GFR (CKD-EPI)NonAf 69 (>60 ml/min/1.73 sqM) Glucose 126 H (74-99) mg/dL Calcium 9.2 (8.4-10.2) mg/dL Total Bilirubin 1.4 H (0.2-1.3) mg/dL AST 28 (14-36) U/L ALT 27 (4-34) U/L Alkaline Phosphatase 54 (38-126) U/L Total Protein 7.0 (6.3-8.2) g/dL Albumin 4.5 (3.5-5.0) g/dL Amylase 46 (30-110) U/L Lipase 140 (23-300) U/L Urine Color Urine Appearance (Clear) Urine pH (5.0-8.0) Ur Specific [place] (1.001-1.035) Urine Protein (Negative) Urine Glucose (UA) (Negative) Urine Ketones (Negative) Urine Blood (Negative) Urine Nitrite (Negative) Urine Bilirubin (Negative) Urine Urobilinogen (<2.0) mg/dL Ur Leukocyte Esterase (Negative) Urine RBC (0-5) /hpf Urine WBC (0-5) /hpf Ur Squamous Epith Cells (0-4) /hpf Urine Bacteria (None) /hpf Urine Mucus (None) /hpf Disposition Clinical Impression: Abdominal pain Disposition: HOME SELF-CARE Condition: Stable Additional Instructions: Please do follow-up with your primary care physician in the next 1 or 2 days for recheck. Prescription sent to pharmacy. Return for increased pain, fever, vomiting, worsening or changing symptoms or any other concerns. Prescriptions: Dicyclomine [Bentyl] 10 mg PO QID PRN #10 tablet PRN Reason: Pain Is patient prescribed a controlled substance at d/c from ED?: No Referrals: Jacky Malave MD [Primary Care Provider] - 1-2 days Time of Disposition: 15:07
[2024-06-06 13:34] LABS: Basophils % (A) 0 %; Eosinophils % (A) 0 %; HCT 41.5 % (34.0-46.0); Lymphocytes # (A) 2.9 k/uL (1.0-4.8); Lymphocytes % (A) 30 %; MCH 33.3 pg (25.0-35.0); MCHC 33.7 g/dL (31.0-37.0); MCV 98.9 fL (80.0-100.0); Mean Platelet Volume 7.8; Monocytes # (A) 0.9 k/uL (0-1.0); Monocytes % (A) 10 %; Neutrophils # (A) 5.4 k/uL (1.3-7.7); Neutrophils % (A) 57 %; Platelet Count 202 k/uL (150-450); RDW 12.4 % (11.5-15.5); WBC 9.6 k/uL (3.8-10.6)
[2024-06-06 13:41] LABS: Appearance,Urine Clear (Clear); Bacteria,Urine Occasional /hpf; Bilirubin,Urine Negative (Negative); Blood,Urine Small (Negative); Color,Urine Colorless; Glucose,Urine (UA) Negative (Negative); Ketones,Urine Negative (Negative); Leukocyte Esterase,Urine Small (Negative); Mucus,Urine Rare /hpf; Nitrite,Urine Negative (Negative); Protein,Urine Negative (Negative); RBC,Urine 5 /hpf (0-5); Specific Gravity,Urine 1.008 (1.001-1.035); Squamous Epithelial Cell,Urine 2 /hpf (0-4); Urobilinogen,Urine <2.0 mg/dL (<2.0); WBC,Urine 1 /hpf (0-5)
[2024-06-06 13:47] LABS: Partial Thromboplastin Time 28.3 sec (22.0-30.0); Prothrombin Time 10.8 sec (10.0-12.5)
[2024-06-06 13:48] LABS: ALT 27 U/L (4-34); AST 28 U/L (14-36); African American GFR (CKD) 79 (>60 ml/min/1.73 sqM); Albumin 4.5 g/dL (3.5-5.0); Alkaline Phosphatase 54 U/L (38-126); Amylase 46 U/L (30-110); Anion Gap 8 mmol/L; Blood Urea Nitrogen 14 mg/dL (7-17); Calcium 9.2 mg/dL (8.4-10.2); Carbon Dioxide 24 mmol/L (22-30); Chloride 106 mmol/L (98-107); Glucose 126 mg/dL (74-99); Lipase 140 U/L (23-300); Non-African American GFR(CKD) 69 (>60 ml/min/1.73 sqM); Potassium 3.7 mmol/L (3.5-5.1); Sodium 138 mmol/L (137-145); Total Bilirubin 1.4 mg/dL (0.2-1.3)
--- NOTE | 2024-06-06 14:39 | CT ---
EXAMINATION TYPE: CT abdomen pelvis w con DATE OF EXAM: 06/06/2024 2:25 PM COMPARISON: None available. CLINICAL INDICATION: Female, 79 years old with history of abdominal pain; right sided abdominal pain started two days ago TECHNIQUE: Axial CT abdomen pelvis w con;Sagittal and coronal reformats were created on a separate w orkstation. Contrast used:100ml mL of Isovue 370 with IV Contrast, (none if empty) Oral contrast used: without Oral Contrast (none if empty) CT DLP: 826.8 mGycm, Automated exposure control for dose reduction was used. FINDINGS: LOWER CHEST: Unremarkable ABDOMEN Liver parenchyma is hypoattenuation, suggestive steatosis. Portal vein appear patent. Gallbladder unr emarkable. Spleen normal in size and morphology. No suspicious adrenal gland nodule. Kidneys enhance symmetrically bilaterally. No hydronephrosis or right ureter. Pancreas unremarkable. No abnormal biliary ductal dilatation. Diffuse mixed costophrenic sulci disease of the abdominal aorta. Circumflex artery and SMA appear itzel ssly patent. No pathologic retroperitoneal or mesenteric lymphadenopathy. No significant free fluid or free air in the abdomen/pelvis. Imaging through the gastrointestinal tract demonstrates diffuse colonic diverticulosis without acute diverticulitis. Appendix unremarkable. No small bowel obstruction. Stomach underdistended but otherwi se unremarkable. Moderate pericardial hernia. No acute osseous adenopathy. Small fat-containing umbil ical hernia. IMPRESSION: No acute abnormality in the abdomen/pelvis or CT findings to explain reported symptoms. [facility], , 06/06/2024 2:37 PM
[2024-06-06 15:23] VITALS: BP 156/74; PULSE 68; TEMP 98.4
== END 2024-06-06 15:31 | disposition home or self-care (01) ==
LOC: EC 12:31
DX: R10.9 Unspecified abdominal pain (principal); Z88.0 Allergy status to penicillin; Z88.8 Allergy status to other drugs, medicaments and biological substances; Z88.5 Allergy status to narcotic agent
CPT/HCPCS: 36415; 80053; 82150; 83690; 85025; 85610; 85730; 81001; 74177; 99284; Q9967

== ENCOUNTER → 2024-06-09 | Outpatient (CLI) | payer MEDICARE ==
[2024-06-09 15:15] LABS: HCT 41.4 % (37.2-46.3); HGB 14.1 g/dL (12.0-15.0); MCH 32.7 pg (27.0-32.0); MCHC 34.1 g/dL (32.0-37.0); MCV 96.1 FL (80.0-97.0); Mean Platelet Volume 10.8 FL (9.5-12.2); NRBC Per 100 WBC 0 X 10*3/uL (0.00-0.01); Platelet Count 182 X 10*3/uL (140-440); RBC 4.31 X 10*6/uL (4.10-5.20); RDW 12.4 % (11.5-14.5); WBC 7.83 X 10*3/uL (4.50-10.00)
[2024-06-09 15:31] LABS: ALT 27 U/L (8-44); AST 27 U/L (13-35); Albumin 4.7 g/dL (3.8-4.9); Albumin/Globulin Ratio 1.96 Ratio (1.60-3.17); Alkaline Phosphatase 58 U/L (41-126); Blood Urea Nitrogen 10.5 mg/dL (9.0-27.0); Calcium 9.6 mg/dL (8.7-10.3); Carbon Dioxide 23.4 mmol/L (21.6-31.8); Chloride 105 mmol/L (96-109); Globulin 2.4 g/dL (1.6-3.3); Glucose 122 mg/dL (70-110); Potassium 3.9 mmol/L (3.5-5.5); Sodium 141 mmol/L (135-145); Total Protein 7.1 g/dL (6.2-8.2); Uric Acid 5.6 mg/dL (2.9-7.7)
[2024-06-09 15:54] LABS: Appearance,Urine Clear (Clear); Bilirubin,Urine Negative (Negative); Blood,Urine Negative (Negative); Color,Urine Yellow (Yellow); Ketones,Urine Negative (Negative); Nitrite,Urine Negative (Negative); Specific Gravity,Urine 1.018 (1.001-1.030); Urobilinogen,Urine 0.2 E.U./DL
[2024-06-09 16:05] LABS: Bacteria,Urine None Seen (None Seen)
== END | disposition home or self-care (01) ==
LOC: LABWHC1 11:28
PROVIDERS: ATTEND Internal Medicine Geriatric Medicine
DX: R10.9 Unspecified abdominal pain (principal)
CPT/HCPCS: 36415; 80053; 81001; 84550; 85027

== ENCOUNTER → 2024-06-21 | Outpatient (CLI) | payer MEDICARE ==
--- NOTE | 2024-06-21 11:56 | US ---
EXAMINATION TYPE: US abdomen complete DATE OF EXAM: 06/21/2024 COMPARISON: 05/04/2021 CLINICAL INDICATION: Female, 79 years old with history of R10.9 ABD PAIN; RUQ pain that comes and goe s TECHNIQUE: Grayscale and color Doppler imaging of the abdomen was performed. FINDINGS: EXAM MEASUREMENTS: Liver Length: 12.4 cm Gallbladder Wall: 0.18 cm CBD: 0.63 cm, color Doppler imaging was utilized to isolate the common bile duct for measurement. Spleen: 9.1 cm Right Kidney: 10.0 x 4.5 x 4.4 cm Left Kidney: 10.4 x 4.7 x 4.6 cm [employer] WEIGHER NOTES: Pancreas: parts seen appear wnl Liver: wnl Gallbladder: wnl Evidence for sonographic Hemphill's sign: No CBD: wnl Spleen: wnl Right Kidney: wnl Left Kidney: wnl Upper IVC: wnl Abd Aorta: wnl The liver is homogenous. The intrahepatic portion of the IVC and proximal abdominal aorta are within normal limits. There is no evidence of cholelithiasis. Common bile duct is unremarkable. The visu alized portions of the pancreas are homogenous. The spleen is unremarkable. Kidneys are symmetric a nd free of hydronephrosis. No renal lesions are seen. IMPRESSION: No discrete abnormality appreciated. [facility], , 06/21/2024 11:54 AM
== END | disposition home or self-care (01) ==
LOC: RADUSWWP 08:32
PROVIDERS: ATTEND Internal Medicine Geriatric Medicine
DX: R10.9 Unspecified abdominal pain (principal)
CPT/HCPCS: 76700

== ENCOUNTER 2024-08-04 21:06 | Emergency (ER) | payer MEDICARE ==
--- NOTE | 2024-08-04 22:00 | ED ---
Abdominal Pain HPI - General Chief Complaint: Abdominal Pain Stated Complaint: Abd Pain Time Seen by Provider: 08/04/24 21:33 Source: patient, RN notes reviewed Mode of arrival: ambulatory Limitations: no limitations - History of Present Illness Initial Comments: This is a 79-year-old female who presents to the emergency department for abdominal pain. Patient reports left lower quadrant pain that has been intermittent for the last 2 to 3 days. Denies any nausea/vomiting or changes in bowel/bladder habits. She had similar pain on the right side previously. States that her workup was unremarkable and they could not identify a cause, however it was thought that she may have passed a kidney stone. She does have some radiation of pain into her back. MD Complaint: abdominal pain - Related Data Home Medications Medication Instructions Recorded Confirmed Aspirin 81 - 162 mg PO DAILY 01/07/15 02/11/15 Atorvastatin [Lipitor] 40 mg PO DAILY 01/07/15 02/11/15 Cholecalciferol [Vitamin D3 (25 2,000 unit PO DAILY 01/07/15 02/11/15 Mcg = 1000 Iu)] Nitroglycerin Sl Tabs [Nitrostat] 0.4 mg SUBLINGUAL DIRECTED PRN 01/07/15 02/11/15 [place]-3 Fatty Acids [[place]-3] 1,000 mg PO DAILY 01/07/15 02/11/15 Ubidecarenone [Co Q-10] 200 mg PO DAILY 01/07/15 02/11/15 atenoloL 25 mg PO DAILY 01/07/15 02/11/15 Multivitamins, Thera [Multivitamin 1 each PO DAILY 02/01/15 02/11/15 (formulary)] Previous Rx's Medication Instructions Recorded Losartan [Cozaar] 50 mg PO DAILY #90 tab 02/06/15 HYDROcodone/APAP 5-325MG [[place] 1 tab PO Q6HR PRN #12 tab 10/03/18 5-325] Dicyclomine [Bentyl] 10 mg PO QID PRN #10 tablet 06/06/24 HYDROcodone/APAP 5-325MG [[place] 1 tab PO Q6HR PRN 3 Days #12 tab 08/05/24 5-325] Allergies Allergy/AdvReac Type Severity Reaction Status Date / Time Antihistamines - Alkylamine Allergy Rapid Verified 08/04/24 21:29 Heart Rate Antihistamines - Ethanolamine Allergy Rapid Verified 08/04/24 21:29 Heart Rate Antihistamines - Allergy Rapid Verified 08/04/24 21:29 Ethylenediamine Heart Rate Antihistamines - Piperazine Allergy Rapid Verified 08/04/24 21:29 Heart Rate Antihistamines - Piperidine Allergy Rapid Verified 08/04/24 21:29 Heart Rate cortisone Allergy Rapid Verified 08/04/24 21:29 Heart Rate epinephrine Allergy Rapid Verified 08/04/24 21:29 Heart Rate morphine Allergy Nausea & Verified 08/04/24 21:29 Vomiting Penicillins Allergy Rash/Hives Verified 08/04/24 21:29 Review of Systems ROS Statement: Those systems with pertinent positive or pertinent negative responses have been documented in the HPI. ROS Other: All systems not noted in ROS Statement are negative. Past Medical History Past Medical History: Coronary Artery Disease (CAD), Cancer, Chest Pain / Angina, Deep Vein Thrombosis (DVT), Hyperlipidemia, Hypertension, Myocardial Infarction ([place]) Additional Past Medical History / Comment(s): Breast Cancer , DVT RT LEG 1990 POST FX,FREQ DIARRHEA,IBS,KIDNEY STONES,CHRONIC RASH TO LT FOOT,UMBILICAL HERNIA Last Myocardial Infarction Date:: History of Any Multi-Drug Resistant Organisms: None Reported Past Surgical History: Adenoidectomy, Breast Surgery, Heart Catheterization With Stent, Hysterectomy, Orthopedic Surgery, Tonsillectomy Additional Past Surgical History / Comment(s): Bilateral Mastactomy,heart stents x1. right total knee replacement. Past Anesthesia/Blood Transfusion Reactions: Postoperative Nausea & Vomiting (PONV) Date of Last Stent Placement:: 2009 Past Psychological History: No Psychological Hx Reported Smoking Status: Former smoker Past Alcohol Use History: Occasional Past Drug Use History: None Reported - Past Family History Sister(s) Family Medical History: Cancer Additional Family Medical History / Comment(s): BREAST Mother Family Medical History: CVA/TIA Father Family Medical History: Cancer Additional Family Medical History / Comment(s): LUNG CA General Exam Limitations: no limitations General appearance: alert, in distress Head exam: Present: atraumatic, normocephalic, normal inspection Respiratory exam: Present: normal lung sounds bilaterally. Absent: respiratory distress, wheezes, rales, rhonchi, stridor Cardiovascular Exam: Present: regular rate, normal rhythm, normal heart sounds. Absent: systolic murmur, diastolic murmur, rubs, gallop, clicks GI/Abdominal exam: Present: soft, tenderness (LLQ), normal bowel sounds. Absent: distended Back exam: Present: CVA tenderness (L). Absent: CVA tenderness (R) Neurological exam: Present: alert, oriented X3, CN II-XII intact Psychiatric exam: Present: normal affect, normal mood Skin exam: Present: warm, dry, intact, normal color. Absent: rash Course Vital Signs 08/04/24 08/04/24 08/05/24 21:23 22:35 00:34 Temperature 97.8 F 98.0 F Pulse Rate 77 77 Respiratory 18 18 Rate Blood Pressure 162/75 139/62 O2 Sat by Pulse 98 97 Oximetry Medical Decision Making - Medical Decision Making This is a 79-year-old female who presents to the emergency department for abdominal pain. Was pt. sent in by a medical professional or institution? @ -No Did you speak to anyone other than the patient for history? @ -None Did you review nursing and triage notes? @ -Yes, and I agree, it is accurate with regards to the patient's symptoms. Were old charts reviewed? @ -No Differential Diagnosis? @ -Differential Abdominal Pain Women: Appendicitis, Cholecystitis, diverticulosis, ischemic bowel, pancreatitis, hepat itis, UTI, gastroenteritis, AAA, incarcerated hernia, bowel obstruction, constipation, inflammatory bowel, hepatitis, peptic ulcer disease, splenic infarction, perforated viscus, vulvitis, ovarian torsion, PID, kidney stone, placenta abruption, this is not meant to be an all-inclusive list EKG interpreted by me (3pts min.)? @ -Not obtained X-rays interpreted by me (1pt min.)? @ -Not obtained CT interpreted by me (1pt min.)? @ -CT scan of the abdomen and pelvis obtained. My interpretation identifies no bowel wall thickening or free air. U/S interpreted by me (1pt. min.)? @ -Not obtained What testing was considered but not performed? (CT, X-rays, U/S, labs)? Why? @ -None What meds were considered but not given? Why? @ -None Did you discuss the management of the patient with other professionals? @ -No Did you reconcile home meds? @ -No Was smoking cessation discussed for >3mins.? @ -No Was critical care preformed (if so, how long)? @ -No Were there social determinants of health that impacted care today? How? (Home lessness, low income, unemployed, alcoholism, drug addiction, transportation, low edu. Level, literacy, decrease access to med. care, residential, rehab)? @ -No Was there de-escalation of care discussed even if they declined? (Discuss DNR or withdrawal of care, Hospice)? @ -No What co-morbidities impacted this encounter? (DM, HTN, Smoking, COPD, CAD, Ca ncer, CVA, Hep., AIDS, mental health diagnosis, sleep apnea, morbid obesity)? @ -None Was patient admitted / discharged? @ -Discharged. Lab work unremarkable. Urinalysis demonstrates trace blood but no elevation in RBCs. This is also negative for signs of infection. CT scan of the abdomen and pelvis reveals no acute process. She has diverticulosis without diverticulitis. The cause of her pain is not entirely clear. With the trace blood she had in her urine she may have passed a kidney stone, which was the thought last time she had this pain. However, we would typically expect more blood or some residual signs on the CT scan. She was given 1 tablet of [place] for pain control, which was effective and her symptoms essentially resolved. She does not like to take medication she is not familiar with, and was not agreeable to trying anything aside from the [place]. She was given a prescription for a 3-day refill on this in the event the pain returns. However, I advise she take this sparingly. She will follow-up with her PCP in the next couple of days for reevaluation. Patient discharged home in stable condition. Case discussed with ED attending Dr. Cantrell. Return precautions reviewed in depth, the patient is instructed to return to the emergency department with any new, worsening, or concerning symptoms. Patient verbalized understanding. Undiagnosed new problem with uncertain prognosis? @ -None Drug Therapy requiring intensive monitoring for toxicity (Heparin, Nitro, Insulin, Cardizem)? @ -None Were any procedures done? @ -None Diagnosis/symptom? @ -Abdominal pain Acute, or Chronic, or Acute on Chronic? @ -Acute Uncomplicated (without systemic symptoms) or Complicated (systemic symptoms)? @ -Uncomplicated Side effects of treatment? @ -None Exacerbation, Progression, or Severe Exacerbation] @ -Not applicable Poses a threat to life or bodily function? @ -No - Lab Data Result diagrams: 08/04/24 21:58 08/04/24 21:58 Lab Results 08/04/24 08/04/24 08/04/24 Range/Units 21:56 21:58 21:58 WBC 10.5 (3.8-10.6) k/uL RBC 3.80 (3.80-5.40) m/uL Hgb 12.8 (11.4-16.0) gm/dL Hct 36.4 (34.0-46.0) % MCV 95.8 (80.0-100.0) fL MCH 33.7 (25.0-35.0) pg MCHC 35.2 (31.0-37.0) g/dL RDW 12.8 (11.5-15.5) % Plt Count 180 (150-450) k/uL MPV 7.7 Neutrophils % 67 % Lymphocytes % 20 % Monocytes % 10 % Eosinophils % 1 % Basophils % 0 % Neutrophils # 7.1 (1.3-7.7) k/uL Lymphocytes # 2.1 (1.0-4.8) k/uL Monocytes # 1.0 (0-1.0) k/uL Eosinophils # 0.1 (0-0.7) k/uL Basophils # 0.0 (0-0.2) k/uL Sodium 138 (137-145) mmol/L Potassium 4.0 (3.5-5.1) mmol/L Chloride 107 (98-107) mmol/L Carbon Dioxide 24 (22-30) mmol/L Anion Gap 7 mmol/L BUN 12 (7-17) mg/dL Creatinine 0.74 (0.52-1.04) mg/dL Est GFR (CKD-EPI)AfAm >90 (>60 ml/min/1.73 sqM) Est GFR (CKD-EPI)NonAf 79 (>60 ml/min/1.73 sqM) Glucose 100 H (74-99) mg/dL Plasma Lactic Acid [place] (0.7-2.0) mmol/L Calcium 9.1 (8.4-10.2) mg/dL Total Bilirubin 1.1 (0.2-1.3) mg/dL AST 42 H (14-36) U/L ALT 27 (4-34) U/L Alkaline Phosphatase 41 (38-126) U/L Total Protein 6.5 (6.3-8.2) g/dL Albumin 4.0 (3.5-5.0) g/dL Amylase 48 (30-110) U/L Lipase 127 (23-300) U/L Urine Color Colorless Urine Appearance Clear (Clear) Urine pH 6.0 (5.0-8.0) Ur Specific [place] 1.002 (1.001-1.035) Urine Protein Negative (Negative) Urine Glucose (UA) Negative (Negative) Urine Ketones Negative (Negative) Urine Blood Trace H (Negative) Urine Nitrite Negative (Negative) Urine Bilirubin Negative (Negative) Urine Urobilinogen <2.0 (<2.0) mg/dL Ur Leukocyte Esterase Negative (Negative) Urine RBC 1 (0-5) /hpf Urine WBC <1 (0-5) /hpf 08/04/24 Range/Units 21:58 WBC (3.8-10.6) k/uL RBC (3.80-5.40) m/uL Hgb (11.4-16.0) gm/dL Hct (34.0-46.0) % MCV (80.0-100.0) fL MCH (25.0-35.0) pg MCHC (31.0-37.0) g/dL RDW (11.5-15.5) % Plt Count (150-450) k/uL MPV Neutrophils % % Lymphocytes % % Monocytes % % Eosinophils % % Basophils % % Neutrophils # (1.3-7.7) k/uL Lymphocytes # (1.0-4.8) k/uL Monocytes # (0-1.0) k/uL Eosinophils # (0-0.7) k/uL Basophils # (0-0.2) k/uL Sodium (137-145) mmol/L Potassium (3.5-5.1) mmol/L Chloride (98-107) mmol/L Carbon Dioxide (22-30) mmol/L Anion Gap mmol/L BUN (7-17) mg/dL Creatinine (0.52-1.04) mg/dL Est GFR (CKD-EPI)AfAm (>60 ml/min/1.73 sqM) Est GFR (CKD-EPI)NonAf (>60 ml/min/1.73 sqM) Glucose (74-99) mg/dL Plasma Lactic Acid [place] 1.3 (0.7-2.0) mmol/L Calcium (8.4-10.2) mg/dL Total Bilirubin (0.2-1.3) mg/dL AST (14-36) U/L ALT (4-34) U/L Alkaline Phosphatase (38-126) U/L Total Protein (6.3-8.2) g/dL Albumin (3.5-5.0) g/dL Amylase (30-110) U/L Lipase (23-300) U/L Urine Color Urine Appearance (Clear) Urine pH (5.0-8.0) Ur Specific [place] (1.001-1.035) Urine Protein (Negative) Urine Glucose (UA) (Negative) Urine Ketones (Negative) Urine Blood (Negative) Urine Nitrite (Negative) Urine Bilirubin (Negative) Urine Urobilinogen (<2.0) mg/dL Ur Leukocyte Esterase (Negative) Urine RBC (0-5) /hpf Urine WBC (0-5) /hpf - Radiology Data Radiology results: report reviewed, image reviewed Disposition Clinical Impression: Abdominal pain Disposition: HOME SELF-CARE Instructions (If sedation given, give patient instructions): Abdominal Pain (ED) Additional Instructions: Return to the emergency department with any new, worsening, or concerning symptoms. Take the [place] sparingly when your pain is the most severe. Follow up with your primary care provider in 1-2 days. Prescriptions: HYDROcodone/APAP 5-325MG [[place] 5-325] 1 tab PO Q6HR PRN 3 Days #12 tab PRN Reason: Pain Is patient prescribed a controlled substance at d/c from ED?: Yes When asked, does pt state using other controlled substances?: No If prescribed controlled substance>3 days was MAPS reviewed?: Prescribed <3 Days Referrals: Jacky Malave MD [Primary Care Provider] - 1-2 days Time of Disposition: 02:40
[2024-08-04 22:12] LABS: Appearance,Urine Clear (Clear); Bilirubin,Urine Negative (Negative); Blood,Urine Trace (Negative); Color,Urine Colorless; Glucose,Urine (UA) Negative (Negative); Ketones,Urine Negative (Negative); Leukocyte Esterase,Urine Negative (Negative); Nitrite,Urine Negative (Negative); Protein,Urine Negative (Negative); RBC,Urine 1 /hpf (0-5); Specific Gravity,Urine 1.002 (1.001-1.035); Urobilinogen,Urine <2.0 mg/dL (<2.0); WBC,Urine <1 /hpf (0-5)
[2024-08-04] MEDS: HYDROcodone/APAP 10-325MG 1 EACH TAB PO ONE (22:47)
[2024-08-04] MEDS: SODIUM CHLORIDE 0.9% 1,000 ML IV STA (22:50)
[2024-08-04] MEDS: ONDANSETRON 4 MG/2 ML VIAL IVP STA (22:50)
[2024-08-04 23:26] LABS: Basophils % (A) 0 %; Eosinophils # (A) 0.1 k/uL (0-0.7); Eosinophils % (A) 1 %; HCT 36.4 % (34.0-46.0); HGB 12.8 gm/dL (11.4-16.0); Lymphocytes # (A) 2.1 k/uL (1.0-4.8); Lymphocytes % (A) 20 %; MCH 33.7 pg (25.0-35.0); MCHC 35.2 g/dL (31.0-37.0); MCV 95.8 fL (80.0-100.0); Mean Platelet Volume 7.7; Monocytes % (A) 10 %; Neutrophils # (A) 7.1 k/uL (1.3-7.7); Neutrophils % (A) 67 %; Platelet Count 180 k/uL (150-450); RDW 12.8 % (11.5-15.5); WBC 10.5 k/uL (3.8-10.6)
[2024-08-04] MEDS: KETOROLAC 15 MG/ML 1 ML VIAL IVP STA (23:47)
[2024-08-04 23:58] LABS: ALT 27 U/L (4-34); African American GFR (CKD) >90 (>60 ml/min/1.73 sqM); Amylase 48 U/L (30-110); Anion Gap 7 mmol/L; Blood Urea Nitrogen 12 mg/dL (7-17); Calcium 9.1 mg/dL (8.4-10.2); Carbon Dioxide 24 mmol/L (22-30); Chloride 107 mmol/L (98-107); Glucose 100 mg/dL (74-99); Lipase 127 U/L (23-300); Non-African American GFR(CKD) 79 (>60 ml/min/1.73 sqM); Sodium 138 mmol/L (137-145); Total Bilirubin 1.1 mg/dL (0.2-1.3)
[2024-08-05 00:06] LABS: Total Protein 6.5 g/dL (6.3-8.2)
[2024-08-05 00:07] LABS: AST 42 U/L (14-36); Alkaline Phosphatase 41 U/L (38-126)
--- NOTE | 2024-08-05 02:31 | CT ---
EXAM: CT Abdomen and Pelvis With Intravenous Contrast CLINICAL HISTORY: ITS.REASON CT Reason: LLQ pain TECHNIQUE: Axial computed tomography images of the abdomen and pelvis with intravenous contrast. CTDI is 10 mGy and DLP is 504.1 mGy-cm. This CT exam was performed using one or more of the following dose reduction techniques: automated exposure control, adjustment of the mA and/or kV according to patient size, and/or use of iterative reconstruction technique. COMPARISON: 01/07/2015 FINDINGS: Lung bases: Unremarkable. No mass. No consolidation. ABDOMEN: Liver: Unremarkable. No mass. Gallbladder and bile ducts: Unremarkable. No calcified stones. No ductal dilation. Pancreas: Unremarkable. No mass. No ductal dilation. Spleen: Unremarkable. No splenomegaly. Adrenals: Unremarkable. No mass. Kidneys and ureters: Unremarkable. No solid mass. No hydronephrosis. Stomach and bowel: Duodenal diverticulum measures 2.8 cm. Diverticulosis, without acute diverticulitis. No small bowel obstruction. No free intraperitoneal air. PELVIS: Appendix: No findings to suggest acute appendicitis. Bladder: Unremarkable. No mass. Reproductive: Hysterectomy. ABDOMEN and PELVIS: Intraperitoneal space: Unremarkable. No free air. No significant fluid collection. Bones/joints: Degenerative changes of the spine. No acute fracture. No dislocation. Soft tissues: Small fat-containing umbilical hernia. Vasculature: Atherosclerotic changes of the aorta. No abdominal aortic aneurysm. Lymph nodes: Unremarkable. No enlarged lymph nodes. IMPRESSION: 1. Hysterectomy. 2. Diverticulosis, without acute diverticulitis. No small bowel obstruction. No free intraperitoneal air.
[2024-08-05 02:44] VITALS: BP 138/72; PULSE 74; RESP 17; TEMP 97.9
== END 2024-08-05 03:00 | disposition home or self-care (01) ==
LOC: EC 21:06
DX: R10.32 Left lower quadrant pain (principal); Z87.891 Personal history of nicotine dependence; Z88.0 Allergy status to penicillin; Z88.8 Allergy status to other drugs, medicaments and biological substances; Z88.5 Allergy status to narcotic agent
CPT/HCPCS: 36415; 80053; 82150; 83605; 83690; 85025; 81001; 74177; 99284; 96374; 96361; J2405; Q9967

== ENCOUNTER → 2024-10-28 | Outpatient (CLI) | payer MEDICARE ==
[2024-10-28 15:15] LABS: Basophils # (A) 0.02 X 10*3/uL (0.00-0.10); Basophils % (A) 0.3 %; Eosinophils # (A) 0.04 X 10*3/uL (0.04-0.35); Eosinophils % (A) 0.5 %; HCT 40.7 % (37.2-46.3); HGB 13.8 g/dL (12.0-15.0); Lymphocytes # (A) 2.84 X 10*3/uL (0.90-5.00); Lymphocytes % (A) 36.4 %; MCH 33.2 pg (27.0-32.0); MCHC 33.9 g/dL (32.0-37.0); MCV 97.8 FL (80.0-97.0); Mean Platelet Volume 10.8 FL (9.5-12.2); Monocytes # (A) 1.02 X 10*3/uL (0.20-1.00); Monocytes % (A) 13.1 %; NRBC Per 100 WBC 0 X 10*3/uL (0.00-0.01); Neutrophils # (A) 3.73 X 10*3/uL (1.80-7.70); Neutrophils % (A) 47.8 %; Platelet Count 187 X 10*3/uL (140-440); RBC 4.16 X 10*6/uL (4.10-5.20); RDW 12.4 % (11.5-14.5)
[2024-10-28 15:50] LABS: Chol/HDL Ratio 2.43 Ratio; LDL Cholesterol,Calculated 63.5 mg/dL (0.0-131.0); VLDL Calculation 10.64 mg/dL (5.00-40.00)
[2024-10-28 15:51] LABS: % Iron Saturation 28.39 (12.00-45.00); ALT 32 U/L (8-44); AST 29 U/L (13-35); Albumin 4.5 g/dL (3.8-4.9); Albumin/Globulin Ratio 2.14 Ratio (1.60-3.17); Alkaline Phosphatase 57 U/L (41-126); BUN/Creat Ratio 14.67 Ratio (12.00-20.00); Blood Urea Nitrogen 13.2 mg/dL (9.0-27.0); Calcium 9.6 mg/dL (8.7-10.3); Carbon Dioxide 26.4 mmol/L (21.6-31.8); Chloride 102 mmol/L (96-109); Globulin 2.1 g/dL (1.6-3.3); Glucose 121 mg/dL (70-110); Iron 111 UG/DL (50-170); Magnesium 2.1 mg/dL (1.5-2.4); Potassium 4.2 mmol/L (3.5-5.5); Sodium 138 mmol/L (135-145); Total Bilirubin 0.9 mg/dL (0.3-1.2); Total Iron Binding Capacity 391 UG/DL (228-460); Total Protein 6.6 g/dL (6.2-8.2)
== END | disposition home or self-care (01) ==
LOC: LABWHC1 11:54
PROVIDERS: ATTEND Internal Medicine Geriatric Medicine
DX: I25.10 Atherosclerotic heart disease of native coronary artery without angina pectoris (principal); E78.2 Mixed hyperlipidemia; E55.9 Vitamin D deficiency, unspecified; D64.9 Anemia, unspecified; R73.9 Hyperglycemia, unspecified
CPT/HCPCS: 36415; 80053; 80061; 82306; 82607; 83036; 83540; 83550; 83735; 84443; 85025